=== PATIENT | female | born 1960 ===

== ENCOUNTER 2017-04-11 15:10 | Inpatient (IN) | payer OTHER ==
[2017-04-11] MEDS ORDERED: Iohexol 240 (50 ml) PO ONE (15:58)
[2017-04-11] MEDS ORDERED: Sodium Chloride 0.9% 1,000 ML IV STA (15:58)
[2017-04-11] MEDS ORDERED: Iohexol 240 (50 ml) ONE (16:16)
--- NOTE | 2017-04-11 16:16 | ED PDOC ---
HPI: Abdomen Time Seen by Provider: 04/11/17 15:42 Chief Complaint (Nursing): Abdominal Pain Chief Complaint (Provider): Abdominal pain History Per: Patient History/Exam Limitations: no limitations Onset/Duration Of Symptoms: Days (x1), Worse Since (onset) Current Symptoms Are (Timing): Still Present Location Of Pain/Discomfort: RLQ, Other Quality Of Discomfort: "Pain" Associated Symptoms: Nausea, Other (lightheadedness). denies: Fever, Chills, Chest Pain, Urinary Symptoms Additional Complaint(s): Georgie Ponce is a 56 year old female, with a past medical history of neck effusion, thyroid problems, and gastric bypass, who presents to the emergency department complaining of right lower abdominal pain that radiates to the back onset since yesterday. Patient also reports nausea and lightheadedness secondary to pain. She denies any numbness or tingling, chest pain, shortness of breath, dysuria, fever or chills. No further medical complaints. PMD: Janene Lee Past Medical History Reviewed: Historical Data, Nursing Documentation, Vital Signs Vital Signs: Last Vital Signs Temp 98.3 F 04/11/17 15:13 Pulse 92 H 04/11/17 15:13 Resp 19 04/11/17 15:13 BP 120/70 04/11/17 15:13 Pulse Ox 98 04/11/17 19:14 - Surgical History Other surgeries: gastric bypass. - Family History Family History: States: Unknown Family Hx - Allergies Allergies/Adverse Reactions: Allergies Allergy/AdvReac Type Severity Reaction Status Date / Time No Known Allergies Allergy Verified 04/11/17 15:13 Review of Systems ROS Statement: Except As Marked, All Systems Reviewed And Found Negative Cardiovascular: Positive for: Light Headedness. Negative for: Chest Pain Respiratory: Negative for: Shortness of Breath Gastrointestinal: Positive for: Nausea, Abdominal Pain (right lower that radiates to back) Genitourinary Female: Negative for: Dysuria Musculoskeletal: Positive for: Back Pain Neurological: Negative for: Numbness (tingling) Physical Exam - Reviewed Nursing Documentation Reviewed: Yes Vital Signs Reviewed: Yes - Physical Exam Appears: Positive for: Well, Non-toxic, No Acute Distress Head Exam: Positive for: ATRAUMATIC, NORMAL INSPECTION, NORMOCEPHALIC Skin: Positive for: Normal Color, Warm, Dry Eye Exam: Positive for: Normal appearance, EOMI, PERRL Neck: Positive for: Painless ROM, Supple Cardiovascular/Chest: Positive for: Regular Rate, Rhythm. Negative for: Murmur Respiratory: Positive for: Normal Breath Sounds. Negative for: Respiratory Distress Gastrointestinal/Abdominal: Positive for: Tenderness (RLQ) Back: Positive for: R CVA Tenderness Extremity: Positive for: Normal ROM. Negative for: Deformity, Swelling Neurologic/Psych: Positive for: Alert, Oriented - Laboratory Results Result Diagrams: 04/11/17 16:35 04/11/17 16:35 Interpretation Of Abn Labs: 11.6 wbc - ECG ECG: Positive for: Interpreted By Me, Viewed By Me ECG Rhythm: Positive for: Normal QRS, Normal ST Segment, Sinus Rhythm O2 Sat by Pulse Oximetry: 98 (RA) Pulse Ox Interpretation: Normal - CT Scan/US ct Other Rad Studies (CT/US): Read By Radiologist Other Rad Interpretation: appendicitis - Progress ED Course And Treament: 1906: Stable. Spoke with Dr. Perez. Will admit medsurg. Wants Dr. Manriquez. Spoke with surgery resident who will see pt. 1952: Stable. Spoke [facility] Dr. Manriquez. Will consult. Medical Decision Making Medical Decision Making: Initial Impression: Abdominal pain Initial Plan: --Abdomen Pelvis PO & IV contrast [CT] --EKG --CMP --Lipase --Troponin I --Urine dip --CBC w/ differential --PTT --PT --Omnipaque 240 50 ml PO --Toradol 15 mg IVP --Sodium Chloride 1,000 ml IV 1,000 mls/hr --Zofran Inj 4 mg IV --reevaluation Scribe Attestation: Documented by Prasad Reese, acting as a scribe for Jim Su MD Provider Scribe Attestation: All medical record entries made by the Scribe were at my direction and personally dictated by me. I have reviewed the chart and agree that the record accurately reflects my personal performance of the history, physical exam, medical decision making, and the department course for this patient. I have also personally directed, reviewed, and agree with the discharge instructions and disposition. Disposition - Clinical Impression Clinical Impression: Appendicitis - Patient ED Disposition Is Patient to be Admitted: Yes Counseled Patient/Family Regarding: Studies Performed, Diagnosis - Disposition Disposition Time: 19:11 Condition: FAIR - Pt Status Changed To: Hospital Disposition Of: Inpatient - Admit Certification Admit to Inpatient:: After my assessment, the patient will require hospitalization for at least two midnights. This is because of the severity of symptoms shown, intensity of services needed, and/or the medical risk in this patient being treated as an outpatient. - POA Present On Arrival: None
[2017-04-11 16:50] LABS: BASO # 0.1 K/uL (0.0-0.2); EOS # 0.3 K/uL (0.0-0.7); EOS % 2.3 % (0.0-4.0); HEMOGLOBIN 12.9 g/dL (12.0-16.0); LYMPH # 2.7 K/uL (1.0-4.3); LYMPH % 23.2 % (20.0-40.0); MEAN CELL VOLUME 83.5 fl (81.0-99.0); MEAN CORPUSCULAR HEMOGLOBIN 26.9 pg (27.0-31.0); MEAN CORPUSCULAR HGB CONC 32.2 g/dL (33.0-37.0); MONO # 1.1 K/uL (0.0-0.8); MONO % 9.1 % (0.0-10.0); NEUT # 7.5 K/uL (1.8-7.0); NEUT % 64.4 % (50.0-75.0); RBC 4.79 Mil/uL (3.80-5.20); RED CELL DISTRIBUTION WIDTH 13.3 % (11.5-14.5); WHITE BLOOD COUNT 11.6 K/uL (4.8-10.8)
[2017-04-11 16:56] LABS: ALT/SGPT 22 U/L (9-52); AST/SGOT 25 U/L (14-36); BLOOD UREA NITROGEN 12 mg/dl (7-17); CALCIUM 9.6 mg/dL (8.4-10.2); GFR AFRICAN-AMERICAN > 60; GFR NON-AFRICAN AMERICAN > 60; LIPASE 50 U/L (23-300)
[2017-04-11 17:00] LABS: INR 1.1 (0.9-1.2); PARTIAL THROMBOPLASTIN TIME 32.6 Seconds (25.6-37.1); PROTHROMBIN TIME 12.5 Seconds (9.8-13.1)
[2017-04-11] MEDS ORDERED: Iohexol 300 100 ML IJ ONE (18:04)
[2017-04-11] MEDS ORDERED: Sodium Chloride 0.9% 50 ML IV ONE (18:04)
[2017-04-11] MEDS ORDERED: Piperacillin/Tazobact 3.375 GM in Sodium Chloride 0.9% 100 ML IV STA (18:54)
--- NOTE | 2017-04-11 19:06 | CT ---
PROCEDURE: CT Abdomen and Pelvis with oral and IV contrast. HISTORY: abd pain COMPARISON: None available. TECHNIQUE: Contiguous axial images of the abdomen and pelvis. Oral and IV contrast was administered. Coronal and Sagittal reformats generated and reviewed. Contrast dose: 100 cc Omnipaque 300 Radiation dose: Total exam DLP = 920.62 mGy-cm. This CT exam was performed using one or more of the following dose reduction techniques: Automated exposure control, adjustment of the mA and/or kV according to patient size, and/or use of iterative reconstruction technique. FINDINGS: LOWER THORAX: Numerous bilateral lower lobe pulmonary nodules measuring up to approximately 9 mm. No visible consolidation, pleural effusion, or pneumothorax. Small hiatal hernia. LIVER: 16 mm hepatic hypodensity measures approximately 7 HU consistent with a cyst. 2.6 cm right hepatic lobe related low-density lesion measures approximately 24 HU, indeterminate. Several additional tiny hypodensities which are too small to characterize. GALLBLADDER AND BILE DUCTS: Cholelithiasis. PANCREAS: Unremarkable. SPLEEN: Unremarkable. ADRENALS: 10 mm left adrenal gland nodule, indeterminate. The right adrenal gland appears unremarkable. KIDNEYS AND URETERS: The kidneys enhance symmetrically. No hydronephrosis or obstructing renal calculus. BLADDER: The urinary bladder appears unremarkable. REPRODUCTIVE: Uterus is present. 6 mm uterine calcification. Probable fibroids. APPENDIX: The appendix is not clearly identified. Suspect 15 mm dilated appendix containing small appendicolith and adjacent inflammatory and phlegmonous changes. BOWEL: The stomach is nondistended. Postsurgical gastric changes. The bowel loops appear within normal limits of caliber without evidence of intestinal obstruction. PERITONEUM: No definite free air. LYMPH NODES: Mesenteric/pericecal sub cm lymph nodes, nonspecific. VASCULATURE: No aortic aneurysm. BONES: Mild degenerative changes. OTHER FINDINGS: None. IMPRESSION: 15 mm dilated appendix containing small appendicolith and adjacent inflammatory and phlegmonous changes. Appendiceal wall is somewhat indistinct. No definite free air. Findings consistent with acute appendicitis. Correlate clinically. Numerous bilateral lower lobe pulmonary nodules measuring up to approximately [address] of the chest recommended for further evaluation. As indicated, further evaluation with biopsy, PET- CT, or follow-up CT at 3 months, and 9 months, and 24 months may be considered. 10 mm left adrenal gland nodule, indeterminate. Dedicated cross-sectional imaging for further characterization. 16 mm hepatic hypodensity measures approximately 7 HU consistent with a cyst. 2.6 cm right hepatic lobe related low-density lesion measures approximately 24 HU, indeterminate. Several additional tiny hypodensities which are too small to characterize. Cholelithiasis. Additional findings as above. Findings discussed with Dr. Su on 04/11/17 at 6:51 p.m.
[2017-04-11] MEDS ORDERED: Piperacillin/Tazobact 3.375 gm Inj IVPB ONE (19:15)
--- NOTE | 2017-04-11 19:32 | CP.PCM.CON ---
<Mellisa Pacheco - Last Filed: 04/11/17 19:51> History of Present Illness - History of Present Illness History of Present Illness: General Surgery Dr. Stacy 56 y/o F w/ PMHx of pre-DM2 and obesity presents to the ED c/o abd pain. Pt reports pain started yesterday as vague abd pain w/ radiation down her R leg. Pt states that when she woke up this morning, the pain was worse and more localized to the RLQ w/ worse radiation down the leg. Pt states she made an appointment w/ her PMD, Dr. Kohler, who, on exam, instructed the pt to present to the ED for evaluation. Pt denies having similar pain in the past. Pain worsened by movement w/ no reliving factors. Pt admits to concurrent chills and nausea but denies fever, vomiting, D/C. PMHx: see above, hypothyroid Meds: reviewed in chart NKDA PSHx: gastric bypass; B/L knee repair; C-spine fusion; (L) achilles heel repair SHx: former smoker, quit 10yrs ago; denies EtOH, drug use FHx: noncontributory Review of Systems - Review of Systems All systems: reviewed and no additional remarkable complaints except (see HPI) Past Patient History - Infectious Disease Hx of Infectious Diseases: None Meds Allergies/Adverse Reactions: Allergies Allergy/AdvReac Type Severity Reaction Status Date / Time No Known Allergies Allergy Verified 04/11/17 15:13 - Medications Medications: Current Medications Piperacillin Sod/Tazobactam (Sod 3.375 gm/ Sodium Chloride) 100 mls @ 100 mls/ hr IV STAT STA PRN Reason: Protocol Stop: 04/11/17 19:53 Physical Exam - Constitutional Appears: No Acute Distress - Head Exam Head Exam: NORMAL INSPECTION - Eye Exam Eye Exam: Normal appearance - ENT Exam ENT Exam: Mucous Membranes Moist - Respiratory Exam Respiratory Exam: NORMAL BREATHING PATTERN. absent: Accessory Muscle Use, Respiratory Distress - GI/Abdominal Exam GI & Abdominal Exam: Guarding (voluntary), Soft, Tenderness (RLQ TTP). absent: Distended, Rebound - Expanded GI/Abdominal Exam Expanded Expanded GI & Abdominal Exam: Heel Tap Sign, Obturator Sign, Rovsing's Sign, McBurney's Point Tenderness. absent: Psoas Sign - Extremities Exam Extremities exam: Positive for: normal inspection - Neurological Exam Neurological exam: Alert, Oriented x3 - Psychiatric Exam Psychiatric exam: Normal Affect, Normal Mood - Skin Skin Exam: Dry, Intact, Normal Color, Warm Results - Vital Signs Recent Vital Signs: Last Vital Signs Temp 98.3 F 04/11/17 15:13 Pulse 92 H 04/11/17 15:13 Resp 19 04/11/17 15:13 BP 120/70 04/11/17 15:13 Pulse Ox 98 04/11/17 19:14 - Labs Result Diagrams: 04/11/17 16:35 04/11/17 16:35 Labs: Laboratory Results - last 24 hr 04/11/17 04/11/17 04/11/17 16:35 16:35 16:35 WBC 11.6 H RBC 4.79 Hgb 12.9 Hct 40.0 MCV 83.5 MCH 26.9 L MCHC 32.2 L RDW 13.3 Plt Count 265 MPV 8.0 Neut % (Auto) 64.4 Lymph % (Auto) 23.2 [place] % (Auto) 9.1 Eos % (Auto) 2.3 Baso % (Auto) 1.0 Neut # (Auto) 7.5 H Lymph # (Auto) 2.7 [place] # (Auto) 1.1 H Eos # (Auto) 0.3 Baso # (Auto) 0.1 PT 12.5 INR 1.1 APTT 32.6 Sodium 142 Potassium 3.6 Chloride 105 Carbon Dioxide 26 Anion Gap 15 BUN 12 Creatinine 0.6 L Est GFR ( Amer) > 60 Est GFR (Non-Af Amer) > 60 Random Glucose 102 Calcium 9.6 Total Bilirubin 1.4 H AST 25 ALT 22 Alkaline Phosphatase 115 Troponin I < 0.0120 Total Protein 7.8 Albumin 4.0 Globulin 3.8 Albumin/Globulin Ratio 1.0 Lipase 50 - Imaging and Cardiology CT scan - abdomen Status: Image reviewed by me, Report reviewed by me Assessment & Plan - Assessment and Plan (Free Text) Assessment: 56 y/o F w/ acute appendicitis - NPO, IVF - IV Abx - pain management - anti-emetic - Pt for OR tomorrow, Saturday @1pm Pt discussed w/ Dr. Regis Pacheco DO PGY2 <Kenny Stacy - Last Filed: 04/14/17 18:29> Meds - Medications Medications: Current Medications Hydromorphone HCl (Dilaudid) 1 mg IVP Q3 PRN PRN Reason: Pain, severe (8-10) Last Admin: 04/14/17 17:40 Dose: 1 mg Metronidazole (Flagyl 500mg/100ml Ns) 100 mls @ 100 mls/hr IVPB Q8 URIEL PRN Reason: Protocol Last Admin: 04/14/17 16:19 Dose: 100 mls/hr Piperacillin Sod/Tazobactam (Sod 3.375 gm/ Sodium Chloride) 100 mls @ 100 mls/ hr IVPB Q6 URIEL PRN Reason: Protocol Last Admin: 04/14/17 17:42 Dose: 100 mls/hr Lactated Ringer's (Lactated Ringer's) 1,000 mls @ 100 mls/hr IV .Q10H [facility] Last Admin: 04/14/17 17:40 Dose: 100 mls/hr Ketorolac Tromethamine (Toradol) 30 mg IVP Q6 PRN PRN Reason: Pain, moderate (4-7) Last Admin: 04/14/17 04:16 Dose: 30 mg Ondansetron HCl (Zofran Inj) 4 mg IVP Q4 PRN PRN Reason: Nausea/Vomiting Pantoprazole Sodium (Protonix Ec Tab) 20 mg PO DAILY [facility] Results - Vital Signs Recent Vital Signs: Last Vital Signs Temp 98.1 F 04/14/17 16:54 Pulse 76 04/14/17 16:54 Resp 18 04/14/17 16:54 BP 116/69 04/14/17 16:54 Pulse Ox 98 04/14/17 16:54 - Labs Result Diagrams: 04/14/17 05:50 04/14/17 05:50 Labs: Laboratory Results - last 24 hr 04/14/17 04/14/17 05:50 05:50 WBC 11.0 H RBC 3.61 L Hgb 9.8 L D Hct 30.2 L MCV 83.8 MCH 27.2 MCHC 32.4 L RDW 13.4 Plt Count 222 Sodium 140 Potassium 3.3 L Chloride 105 Carbon Dioxide 27 Anion Gap 11 BUN 16 Creatinine 0.7 Est GFR ( Amer) > 60 Est GFR (Non-Af Amer) > 60 Random Glucose 126 H Calcium 8.6 Total Bilirubin 0.8 AST 22 ALT 28 Alkaline Phosphatase 76 Total Protein 6.0 L Albumin 2.9 L D Globulin 3.1 Albumin/Globulin Ratio 0.9 L Attending/Attestation - Attestation I have personally seen and examined this patient.: Yes I have fully participated in the care of the patient.: Yes I have reviewed all pertinent clinical information: Yes Notes (Text): Pt was seen and examined at bedside Agree with above note and assessment Pt with Abdominal pain for 2 weeks and RLQ tenderness Labs and radilolgy reviewed Ass: Acute Appendicitis with Leucocytosis OR for Lap Appendectomy possible Open Consnet NPO, IVF IV antibiotics Plan d.w pt in detail Risk and benefit explained in detail.
[2017-04-11] MEDS ORDERED: Morphine 4 MG/ML VIAL ONE (19:34)
[2017-04-11 19:50] LABS: VENOUS BLOOD GAS BASE EXCESS -0.7 mmol/L (0.0-2.0); VENOUS BLOOD GAS PCO2 40 mmHg (40-60); VENOUS BLOOD GAS PO2 28 mm/Hg (30-55); VENOUS BLOOD PH 7.39 (7.32-7.43)
[2017-04-11] MEDS ORDERED: Morphine 4 MG/ML VIAL IV ONE (20:00)
[2017-04-11] MEDS ORDERED: Sodium Chloride 0.9% 1,000 ML IV SCH (21:00)
[2017-04-12] MEDS: metroNIDAZOLE 500mg/100ml NS 100 ML IVPB SCH ×2 (00:01→08:37)
[2017-04-12] MEDS: Piperacillin/Tazobact 3.375 GM in Sodium Chloride 0.9% 100 ML IVPB SCH ×3 (04:19→21:54)
--- NOTE | 2017-04-12 07:33 | CP.PCM.HP ---
<Kusum Rutledge - Last Filed: 04/12/17 07:50> History of Present Illness - History of Present Illness History of Present Illness: PMD Dr. Perez 56 YO F was admitted for abdominal pain on the right lower quadrant which was radiating to her back and down her right leg. Pain which was started yesterday was initially was mild to moderate and has progressively worsened. Pain was aggravated with movements. Patient had gone to her PMD who was referred to [facility] for further follow up. -Patient denies any fever, nausea or vomiting however does admit to having some chills. PMH: DM2, Hypothyroidism PSH: Back surgery, gastric bypass SH: Denies illicit drug use or alcohol use. Smoked in the past but no longer smokes FH: none Allergy: none PMD: Dr. Kohler Present on Admission - Present on Admission Any Indicators Present on Admission: No Past Patient History - Infectious Disease Hx of Infectious Diseases: None - Past Medical History & Family History Past Medical History?: No - Past Social History Smoking Status: Never Smoked - MUSCULOSKELETAL/RHEUMATOLOGICAL Hx Falls: No - PSYCHIATRIC Hx Substance Use: No - SURGICAL HISTORY Hx Gastric Bypass Surgery: Yes Hx Orthopedic Surgery: Yes (b/l knee and L foot sx) - ANESTHESIA Hx Anesthesia: Yes Hx Anesthesia Reactions: No Meds Allergies/Adverse Reactions: Allergies Allergy/AdvReac Type Severity Reaction Status Date / Time No Known Allergies Allergy Verified 04/11/17 15:13 Physical Exam - Constitutional Appears: No Acute Distress - Head Exam Head Exam: NORMAL INSPECTION - Eye Exam Eye Exam: Normal appearance - Respiratory Exam Respiratory Exam: Clear to Auscultation Bilateral, NORMAL BREATHING PATTERN. absent: Rales, Rhonchi, Wheezes, Respiratory Distress - Cardiovascular Exam Cardiovascular Exam: REGULAR RHYTHM, +S1, +S2 - GI/Abdominal Exam GI & Abdominal Exam: Normal Bowel Sounds, Soft, Tenderness (right lower quadrant ) - Extremities Exam Extremities exam: Positive for: normal inspection - Neurological Exam Neurological exam: Alert, CN II-XII Intact, Oriented x3 - Skin Skin Exam: Normal Color, Warm Results - Vital Signs Recent Vital Signs: Last Vital Signs Temp 99.2 F 04/11/17 23:43 Pulse 82 04/11/17 23:43 Resp 18 04/11/17 23:43 BP 139/81 04/11/17 23:43 Pulse Ox 100 02/08/18 23:43 - Labs Result Diagrams: 04/11/17 16:35 04/11/17 16:35 Labs: Laboratory Results - last 24 hr 04/11/17 04/11/17 04/11/17 16:35 16:35 16:35 WBC 11.6 H RBC 4.79 Hgb 12.9 Hct 40.0 MCV 83.5 MCH 26.9 L MCHC 32.2 L RDW 13.3 Plt Count 265 MPV 8.0 Neut % (Auto) 64.4 Lymph % (Auto) 23.2 [place] % (Auto) 9.1 Eos % (Auto) 2.3 Baso % (Auto) 1.0 Neut # (Auto) 7.5 H Lymph # (Auto) 2.7 [place] # (Auto) 1.1 H Eos # (Auto) 0.3 Baso # (Auto) 0.1 PT 12.5 INR 1.1 APTT 32.6 pO2 VBG pH VBG pCO2 VBG HCO3 VBG Total CO2 VBG O2 Sat (Calc) VBG Base Excess VBG Potassium Glucose Lactate FiO2 Sodium 142 Potassium 3.6 Chloride 105 Carbon Dioxide 26 Anion Gap 15 BUN 12 Creatinine 0.6 L Est GFR ( Amer) > 60 Est GFR (Non-Af Amer) > 60 Random Glucose 102 Calcium 9.6 Total Bilirubin 1.4 H AST 25 ALT 22 Alkaline Phosphatase 115 Troponin I < 0.0120 Total Protein 7.8 Albumin 4.0 Globulin 3.8 Albumin/Globulin Ratio 1.0 Lipase 50 Venous Blood Potassium 04/11/17 19:40 WBC RBC Hgb Hct MCV MCH MCHC RDW Plt Count MPV Neut % (Auto) Lymph % (Auto) [place] % (Auto) Eos % (Auto) Baso % (Auto) Neut # (Auto) Lymph # (Auto) [place] # (Auto) Eos # (Auto) Baso # (Auto) PT INR APTT pO2 28 L VBG pH 7.39 VBG pCO2 40 VBG HCO3 23.1 VBG Total CO2 25.4 VBG O2 Sat (Calc) 59.3 VBG Base Excess -0.7 L VBG Potassium 3.8 Glucose 100 Lactate 1.0 FiO2 21.0 Sodium 139.0 Potassium Chloride 107.0 Carbon Dioxide Anion Gap BUN Creatinine Est GFR ( Amer) Est GFR (Non-Af Amer) Random Glucose Calcium Total Bilirubin AST ALT Alkaline Phosphatase Troponin I Total Protein Albumin Globulin Albumin/Globulin Ratio Lipase Venous Blood Potassium 3.8 Assessment & Plan - Assessment and Plan (Free Text) Assessment: 1) Abdominal pain consistent with w/ appendicitis - NPO - Pre op labs reviewed :Patient is low risk for surgery - Surgery on consult: Scheduled for 1 pm - 15 mm appendix containg small appendicolith and adjacent inflammatory and phlegmonous changes 2) Incidental pulmonary nodules noted on abdomen Ct - Numerous b/l lower lobe pulmonary nodules measuring up to 9 mm - Chest CT indicated after patients surgery <Fredy Perez - Last Filed: 04/19/17 16:18> Results - Vital Signs Recent Vital Signs: Last Vital Signs Temp 97.9 F 04/18/17 08:12 Pulse 83 04/18/17 08:12 Resp 18 04/18/17 08:12 BP 138/83 04/18/17 08:12 Pulse Ox 99 04/18/17 08:12 - Labs Result Diagrams: 04/15/17 06:15 04/15/17 06:15 Assessment & Plan - Assessment and Plan (Free Text) Assessment: Patient was personally seen and examined by me in rounds with residents. Available labs and diagnostic data reviewed. Case, Patient's condition and management plan discussed with residents in rounds. Agree with resident's documentation. Plan: As ordered. Fredy Perez MD
--- NOTE | 2017-04-12 11:24 | CARD ---
APPROVED REPORT EKG Measurement Heart [id number] <Conclusion> Normal sinus rhythm Normal ECG
--- NOTE | 2017-04-12 12:19 | RAD ---
HISTORY: Admission, pre-op COMPARISON: No prior. TECHNIQUE: Chest PA and lateral FINDINGS: LUNGS: Adjacent right upper lobe 3.1 x 2.8 cm and 3.3 x 3.3 cm masses. PLEURA: No significant pleural effusion identified. No pneumothorax apparent. CARDIOVASCULAR: Normal. OSSEOUS STRUCTURES: Anterior cervical fixation plate. Degenerative changes. VISUALIZED UPPER ABDOMEN: Partially imaged retained enteric contrast from recent CT scan. OTHER FINDINGS: None. IMPRESSION: Adjacent right upper lobe masses. CT scan of the chest is recommended for further evaluation.
[2017-04-12] MEDS ORDERED: Bupivacaine 0.5% Inj(30mL) ONE (12:41)
[2017-04-12] MEDS ORDERED: Lidocaine 1% Inj (20ml) ONE (12:41)
[2017-04-12] MEDS ORDERED: Rocuronium 10 mg/ml (5 ml) ONE (13:59)
[2017-04-12] MEDS ORDERED: Propofol 10 mg/ml Inj (20 ML) ONE (13:59)
[2017-04-12] MEDS ORDERED: Succinylcholine 200 mg/10 ml Inj IV ONE (13:59)
[2017-04-12] MEDS ORDERED: Lactated Ringer's 1,000 ML IV ONE ×2 (14:35→16:00)
[2017-04-12] MEDS ORDERED: Midazolam 2 MG/2 ML VIAL ONE (14:37)
[2017-04-12] MEDS ORDERED: Piperacillin/Tazobact 3.375 gm Inj IVPB ONE (14:50)
[2017-04-12] MEDS ORDERED: Dexamethasone 4 mg/1 ml ONE (14:55)
[2017-04-12] MEDS ORDERED: metroNIDAZOLE 500mg/100ml NS IVPB ONE (17:50)
[2017-04-13] MEDS: metroNIDAZOLE 500mg/100ml NS 100 ML IVPB SCH ×3 (00:46→18:34)
[2017-04-13] MEDS: Piperacillin/Tazobact 3.375 GM in Sodium Chloride 0.9% 100 ML IVPB SCH ×4 (04:16→21:39)
[2017-04-13] MEDS: Lactated Ringer's 1,000 ML IV SCH (04:16)
--- NOTE | 2017-04-13 10:32 | PN ---
DATE: 04/13/2017 SUBJECTIVE: The patient is seen and examined. Interim events noted. Consults noted and appreciated. Surgical intervention, surgery noted and appreciated. Case was discussed with Surgery yesterday. The patient feels better. Pain seems to be under control. No chest pain, no shortness of breath. PHYSICAL EXAMINATION: GENERAL: The patient is in no acute distress. VITAL SIGNS: Stable. HEART: S1 and S2, normal and regular. LUNGS: Good bilateral air exchange. ABDOMEN: Soft and nontender. good position and functioning. No sign of acute complication. EXTREMITIES: No edema, no calf swelling, no tenderness. No acute ischemia. CENTRAL NERVOUS SYSTEM: Essentially unchanged. DIAGNOSTIC DATA: Available diagnostic data reviewed. PLAN: The patient is clinically stable. Tolerated surgery well. No overt postop complication. Plan as ordered. Fredy Perez MD
[2017-04-13] MEDS ORDERED: Sodium Chloride 0.9% 50 ML IV ONE (12:12)
[2017-04-13] MEDS ORDERED: Iohexol 300 100 ML IJ ONE (12:12)
--- NOTE | 2017-04-13 16:00 | PCM.SURG1 ---
Surgeon's Initial Post Op Note - Surgeon's Notes Surgeon: Hetaher Stacy Decorating Machine Tender: DAQUAN Tapia Type of Anesthesia: General Endo Pre-Operative Diagnosis: Acute Appendicitis with Leucocystosis Operative Findings: Acute Phlagmoneous appendicitis with abscess. Extensive Post infectious adhesions. Appendicolith at base of appendix. Pelvic collection Post-Operative Diagnosis: Acute Phlagmoneous appendicitis with abscess. Extensive Post infectious adhesions. Appendicolith at base of appendix. Pelvic collection Operation Performed: Lap Extensive Lysis of Adhesions. Lap Apendectomy. Lap Cecectomy. Lap Drainage of Pelvic collection Specimen/Specimens Removed: Appendix and part of cecum Estimated Blood Loss: EBL {In ML}: 100 Blood Products Given: N/A Drains Used: Kevon Post-Op Condition: Good Date of Surgery/Procedure: 04/12/17 Time of Surgery/Procedure: 17:30
--- NOTE | 2017-04-13 17:34 | CT ---
PROCEDURE: CT scan chest dated 04/13/2017 HISTORY: Lung masses. COMPARISON: Comparison made with prior abdomen and pelvis dated CT scan dated 04/11/2017. TECHNIQUE: Contiguous axial images were obtained through the chest with intravenous contrast enhancement. Sagittal and coronal reconstructions were performed. IV contrast: 95 cc Omnipaque 300 Radiation dose (DLP): 436 point 29 mGy-cm. This CT exam was performed using one or more of the following dose reduction techniques: Automated exposure control, adjustment of the mA and/or kV according to patient size, and/or use of iterative reconstruction technique. FINDINGS: LUNGS: The current study reveals left 2 large parenchymal masses in the right upper lobe. The more anteriorly located lesion measures approximately 3.4 AP x 3.6 trans x 2.6 cc. The posteriorly located lesion measures approximately 3.3 AP x 2.8 cm trans x 3.0 cm cc. Multiple too numerous to count smaller lesions are seen scattered throughout the remaining lung irwin. Findings may represent a large primary malignancy in the upper lobe with multiple metastatic deposits. Clinical correlation recommended. . There is a small area of pleural thickening in the posterior pleural surface right lower lobe. Multiple tiny blebs seen in both lung apices. MEDIASTINUM: Heart size normal. No significant pericardial effusion. No evidence of thoracic aortic aneurysm. The ascending thoracic aorta measures approximately 2.56 cm and descending thoracic aorta measures approximately 2.1 cm. Pulmonary trunk measures approximately 2.8 cm. There are multiple small to medium-sized mediastinal lymph nodes the largest in the right parasagittal paratracheal region just above the level of the nayeli measures approximately 18 mm. Central airways are midline and patent. No obvious large central endoluminal lesions. PLEURA: No pleural fluid. No pneumothorax. BONES: Mild multilevel degenerative spondylosis of the thoracic spine. There are no acute compression fractures no retropulsed fragments. No definitive suspicious lytic or blastic lesions however consider followup bone scan hip bone metastasis suspected clinically. UPPER ABDOMEN: Please refer to CT scan of the abdomen pelvis 04/11/2017 and corresponding report for details regarding the at abdomen and pelvis. OTHER FINDINGS: None. IMPRESSION: There are 2 large the round/elliptical shaped masses in the right upper lobe with multiple (too numerous to count) small nodular densities scattered throughout the upper and lower lobes. Findings consistent with what probably represents primary malignancy in the upper lobe and multiple metastatic lesions throughout the remaining lung irwin. Clinical correlation recommended. Consider additional imaging such as bone scan or PET scan if there is any known primary cancer in this patient.
--- NOTE | 2017-04-13 18:45 | CP.PCM.PN ---
<Nick Dang - Last Filed: 04/13/17 18:42> Subjective - Date & Time of Evaluation Date of Evaluation: 04/13/17 Time of Evaluation: 16:00 - Subjective Subjective: General Surgery Pt S&E, NAEO. +BM, ambulating. Wants liquids.Pain controlled with meds. Objective - Vital Signs/Intake and Output Vital Signs (last 24 hours): Temp Pulse Resp BP Pulse Ox 97.8 F 68 18 130/81 98 04/13/17 16:00 04/13/17 16:00 04/13/17 16:00 04/13/17 16:00 04/13/17 16:00 Intake and Output: 04/13/17 04/13/17 06:59 18:59 Intake Total 1200 Output Total 10 Balance 1190 - Medications Medications: Current Medications Hydromorphone HCl (Dilaudid) 1 mg IVP Q3 PRN PRN Reason: Pain, severe (8-10) Last Admin: 04/13/17 16:57 Dose: 1 mg Metronidazole (Flagyl 500mg/100ml Ns) 100 mls @ 100 mls/hr IVPB Q8 URIEL PRN Reason: Protocol Last Admin: 04/13/17 18:34 Dose: 100 mls/hr Piperacillin Sod/Tazobactam (Sod 3.375 gm/ Sodium Chloride) 100 mls @ 100 mls/ hr IVPB Q6 URIEL PRN Reason: Protocol Last Admin: 04/13/17 16:58 Dose: 100 mls/hr Lactated Ringer's (Lactated Ringer's) 1,000 mls @ 100 mls/hr IV .Q10H URIEL Last Admin: 04/13/17 04:16 Dose: 100 mls/hr Ketorolac Tromethamine (Toradol) 30 mg IVP Q6 PRN PRN Reason: Pain, moderate (4-7) Last Admin: 04/13/17 14:02 Dose: 30 mg Ondansetron HCl (Zofran Inj) 4 mg IVP Q4 PRN PRN Reason: Nausea/Vomiting - Labs Labs: 04/11/17 16:35 04/11/17 16:35 PT 12.5 Seconds (9.8-13.1) 04/11/17 16:35 INR 1.1 (0.9-1.2) 04/11/17 16:35 APTT 32.6 Seconds (25.6-37.1) 04/11/17 16:35 - Constitutional Appears: Non-toxic, No Acute Distress - Head Exam Head Exam: ATRAUMATIC, NORMOCEPHALIC - Eye Exam Eye Exam: EOMI. absent: Scleral icterus - Respiratory Exam Respiratory Exam: NORMAL BREATHING PATTERN. absent: Respiratory Distress - GI/Abdominal Exam GI & Abdominal Exam: Guarding (mild at incision sites), Soft, Tenderness (at incision sites). absent: Distended, Firm, Rigid, Rebound Additional comments: dressings dry and intact. Drain in place with serosanguinous fluid - Neurological Exam Neurological Exam: Alert, Awake, Oriented x3 - Skin Skin Exam: Dry, Warm Assessment and Plan - Assessment and Plan (Free Text) Assessment: 56F S/P Cecectomy for perforated appendicitis Plan: Advanced to CLD Monitor output Pain control PRN Get pt incentive spirometer D/W Dr. Regis Dang PGY4 <Kenny Stacy B - Last Filed: 04/14/17 18:34> Objective - Vital Signs/Intake and Output Vital Signs (last 24 hours): Temp Pulse Resp BP Pulse Ox 98.1 F 76 18 116/69 98 04/14/17 17:00 04/14/17 16:54 04/14/17 16:54 04/14/17 16:54 04/14/17 16:54 Intake and Output: 04/14/17 04/14/17 06:59 18:59 Intake Total 1100 Output Total 20 Balance 1080 - Medications Medications: Current Medications Hydromorphone HCl (Dilaudid) 1 mg IVP Q3 PRN PRN Reason: Pain, severe (8-10) Last Admin: 04/14/17 17:40 Dose: 1 mg Metronidazole (Flagyl 500mg/100ml Ns) 100 mls @ 100 mls/hr IVPB Q8 URIEL PRN Reason: Protocol Last Admin: 04/14/17 16:19 Dose: 100 mls/hr Piperacillin Sod/Tazobactam (Sod 3.375 gm/ Sodium Chloride) 100 mls @ 100 mls/ hr IVPB Q6 URIEL PRN Reason: Protocol Last Admin: 04/14/17 17:42 Dose: 100 mls/hr Lactated Ringer's (Lactated Ringer's) 1,000 mls @ 100 mls/hr IV .Q10H URIEL Last Admin: 04/14/17 17:40 Dose: 100 mls/hr Ketorolac Tromethamine (Toradol) 30 mg IVP Q6 PRN PRN Reason: Pain, moderate (4-7) Last Admin: 04/14/17 04:16 Dose: 30 mg Ondansetron HCl (Zofran Inj) 4 mg IVP Q4 PRN PRN Reason: Nausea/Vomiting Pantoprazole Sodium (Protonix Ec Tab) 20 mg PO DAILY URIEL - Labs Labs: 04/14/17 05:50 04/14/17 05:50 PT 12.5 Seconds (9.8-13.1) 04/11/17 16:35 INR 1.1 (0.9-1.2) 04/11/17 16:35 APTT 32.6 Seconds (25.6-37.1) 04/11/17 16:35 Attending/Attestation - Attestation I have personally seen and examined this patient.: Yes I have fully participated in the care of the patient.: Yes I have reviewed all pertinent clinical information, including history, physical exam and plan: Yes Notes (Text): Local wound care IV antibiotics Clear liquid diet Plan d.w nurse in detail
[2017-04-14] MEDS: metroNIDAZOLE 500mg/100ml NS 100 ML IVPB SCH ×3 (00:18→16:19)
[2017-04-14] MEDS: Lactated Ringer's 1,000 ML IV SCH ×2 (00:20→17:40)
[2017-04-14] MEDS: Piperacillin/Tazobact 3.375 GM in Sodium Chloride 0.9% 100 ML IVPB SCH ×4 (04:15→21:48)
--- NOTE | 2017-04-14 05:59 | CP.PCM.PN ---
<Ladarius Reid - Last Filed: 04/14/17 08:24> Subjective - Date & Time of Evaluation Date of Evaluation: 04/14/17 Time of Evaluation: 05:20 - Subjective Subjective: General Surgery Note for Dr. Stacy Patient seen and examined at [facility]. Overnight, patient had BM. She states pain is controlled with meds. She is tolerating clear liquid diet. Patient has been ambulating. Patient has no other complaints at this time. Objective - Vital Signs/Intake and Output Vital Signs (last 24 hours): Temp Pulse Resp BP Pulse Ox 97.9 F 69 20 106/58 L 94 L 04/14/17 00:20 04/14/17 00:20 04/14/17 00:20 04/14/17 00:20 04/14/17 00:20 Intake and Output: 04/13/17 04/14/17 18:59 06:59 Intake Total 1200 Output Total 30 Balance 1170 - Medications Medications: Current Medications Hydromorphone HCl (Dilaudid) 1 mg IVP Q3 PRN PRN Reason: Pain, severe (8-10) Last Admin: 04/13/17 22:38 Dose: 1 mg Metronidazole (Flagyl 500mg/100ml Ns) 100 mls @ 100 mls/hr IVPB Q8 URIEL PRN Reason: Protocol Last Admin: 04/14/17 00:18 Dose: 100 mls/hr Piperacillin Sod/Tazobactam (Sod 3.375 gm/ Sodium Chloride) 100 mls @ 100 mls/ hr IVPB Q6 URIEL PRN Reason: Protocol Last Admin: 04/14/17 04:15 Dose: 100 mls/hr Lactated Ringer's (Lactated Ringer's) 1,000 mls @ 100 mls/hr IV .Q10H URIEL Last Admin: 04/14/17 00:20 Dose: 100 mls/hr Ketorolac Tromethamine (Toradol) 30 mg IVP Q6 PRN PRN Reason: Pain, moderate (4-7) Last Admin: 04/14/17 04:16 Dose: 30 mg Ondansetron HCl (Zofran Inj) 4 mg IVP Q4 PRN PRN Reason: Nausea/Vomiting - Labs Labs: 04/11/17 16:35 04/11/17 16:35 PT 12.5 Seconds (9.8-13.1) 04/11/17 16:35 INR 1.1 (0.9-1.2) 04/11/17 16:35 APTT 32.6 Seconds (25.6-37.1) 04/11/17 16:35 - Constitutional Appears: No Acute Distress - Head Exam Head Exam: ATRAUMATIC, NORMOCEPHALIC - Eye Exam Eye Exam: EOMI, Normal appearance Pupil Exam: PERRL - ENT Exam ENT Exam: Mucous Membranes Moist - Respiratory Exam Respiratory Exam: NORMAL BREATHING PATTERN - Cardiovascular Exam Cardiovascular Exam: REGULAR RHYTHM - GI/Abdominal Exam GI & Abdominal Exam: Soft, Normal Bowel Sounds. absent: Distended, Firm, Guarding, Rigid, Tenderness Additional comments: dressings dry and intact. Drain in place with serosanguinous fluid - Neurological Exam Neurological Exam: Alert, Awake, Oriented x3 - Psychiatric Exam Psychiatric exam: Normal Affect, Normal Mood - Skin Skin Exam: Dry, Intact, Normal Color, Warm Assessment and Plan - Assessment and Plan (Free Text) Plan: 56F S/P appendectomy and Cecectomy for perforated appendicitis POD#2 CLD, ADAT Monitor drain output Analgesics PRN Continue IV antibiotics Incentive spirometer will discuss with Dr. Regis Reid PGY1 <Kenny Stacy B - Last Filed: 04/14/17 18:36> Objective - Vital Signs/Intake and Output Vital Signs (last 24 hours): Temp Pulse Resp BP Pulse Ox 98.1 F 76 18 116/69 98 04/14/17 17:00 04/14/17 16:54 04/14/17 16:54 04/14/17 16:54 04/14/17 16:54 Intake and Output: 04/14/17 04/14/17 06:59 18:59 Intake Total 1100 Output Total 20 Balance 1080 - Medications Medications: Current Medications Hydromorphone HCl (Dilaudid) 1 mg IVP Q3 PRN PRN Reason: Pain, severe (8-10) Last Admin: 04/14/17 17:40 Dose: 1 mg Metronidazole (Flagyl 500mg/100ml Ns) 100 mls @ 100 mls/hr IVPB Q8 URIEL PRN Reason: Protocol Last Admin: 04/14/17 16:19 Dose: 100 mls/hr Piperacillin Sod/Tazobactam (Sod 3.375 gm/ Sodium Chloride) 100 mls @ 100 mls/ hr IVPB Q6 URIEL PRN Reason: Protocol Last Admin: 04/14/17 17:42 Dose: 100 mls/hr Lactated Ringer's (Lactated Ringer's) 1,000 mls @ 100 mls/hr IV .Q10H [facility] Last Admin: 04/14/17 17:40 Dose: 100 mls/hr Ketorolac Tromethamine (Toradol) 30 mg IVP Q6 PRN PRN Reason: Pain, moderate (4-7) Last Admin: 04/14/17 04:16 Dose: 30 mg Ondansetron HCl (Zofran Inj) 4 mg IVP Q4 PRN PRN Reason: Nausea/Vomiting Pantoprazole Sodium (Protonix Ec Tab) 20 mg PO DAILY URIEL - Labs Labs: 04/14/17 05:50 04/14/17 05:50 PT 12.5 Seconds (9.8-13.1) 04/11/17 16:35 INR 1.1 (0.9-1.2) 04/11/17 16:35 APTT 32.6 Seconds (25.6-37.1) 04/11/17 16:35 Attending/Attestation - Attestation I have fully participated in the care of the patient.: Yes I have reviewed all pertinent clinical information, including history, physical exam and plan: Yes Notes (Text): Reg diet IV antibiotics OOB to walk C/w current mx Plan d.w pt in detail
[2017-04-14 08:17] LABS: HEMOGLOBIN 9.8 g/dL (12.0-16.0); MEAN CELL VOLUME 83.8 fl (81.0-99.0); MEAN CORPUSCULAR HEMOGLOBIN 27.2 pg (27.0-31.0); MEAN CORPUSCULAR HGB CONC 32.4 g/dL (33.0-37.0); RBC 3.61 Mil/uL (3.80-5.20); RED CELL DISTRIBUTION WIDTH 13.4 % (11.5-14.5)
--- NOTE | 2017-04-14 08:24 | PN ---
DATE: 04/14/2017 SUBJECTIVE: The patient is seen and examined. Interim events noted. Consults noted and appreciated. Surgical followup and intervention noted and appreciated. The patient remains in regular medical floor. Tolerated liquid diet very well. Her abdominal pain is present, but adequately controlled. No chest pain or shortness of breath. PHYSICAL EXAMINATION: GENERAL: The patient is in no acute distress. VITAL SIGNS: Stable. HEART: S1 and S2, normal and regular. LUNGS: Good bilateral air exchange. ABDOMEN: Soft and nontender. No sign of acute complication. SHERRY drain is in good position and functioning and draining tenderness. No bloody discharge, no sign of acute abdomen. No guarding, no rigidity, no rebound. Bowel sounds are plus and normal. EXTREMITIES: No edema, no calf swelling. No tenderness. No acute ischemia. TIRE CLASSIFIER: Essentially unchanged. DIAGNOSTIC DATA: Available diagnostic data reviewed. PLAN: Overall, the patient's general medical condition is slowly improving. Plan as ordered. Fredy Perez MD
[2017-04-14 08:30] LABS: ALB/GLOB RATIO 0.9 (1.0-2.1); ALBUMIN 2.9 g/dL (3.5-5.0); ALT/SGPT 28 U/L (9-52); AST/SGOT 22 U/L (14-36); BLOOD UREA NITROGEN 16 mg/dl (7-17); CALCIUM 8.6 mg/dL (8.4-10.2); GFR AFRICAN-AMERICAN > 60; GFR NON-AFRICAN AMERICAN > 60
[2017-04-14] MEDS ORDERED: Potassium Chloride 20 mEq ER Tab PO ONE (14:30)
--- NOTE | 2017-04-14 22:53 | OP ---
PROCEDURE DATE: 04/12/2017 PREOPERATIVE DIAGNOSES: 1. Acute appendicitis with leukocytosis. 2. Abdominal pain. POSTOPERATIVE DIAGNOSES: 1. Acute phlegmonous perforated appendicitis at the base of the appendix. 2. Extensive postinfectious adhesions. 3. Pelvic abscess and appendicular abscess. PROCEDURES: 1. Laparoscopic extensive lysis of adhesions. 2. Laparoscopic appendectomy. 3. Laparoscopic drainage of pelvic collection and appendicular abscess. 4. Laparoscopic cecectomy partial. SURGEON: Kenny Stacy MD PLANE RUNNER: BRANDEN Tapia TYPE OF ANESTHESIA: General endotracheal tube anesthesia. ESTIMATED BLOOD LOSS: Around 100 mL. DRAINS: A 19-[place] Kevon drain was placed. COMPLICATIONS: None. INTRAOPERATIVE FINDINGS: The patient had appendicular abscess and perforation at the base of appendix where extensive postinflammatory phlegmonous changes surrounding the pelvis and the mass was attached on the iliac vessels. DESCRIPTION OF PROCEDURE: On intraoperative steps, this 56-year-old female who was admitted with complaint of right lower quadrant pain since last 2 week and since last 2 days, the pain got worse and the patient had leukocytosis as well as CT scan findings of acute appendicitis and the patient was consented for laparoscopic appendectomy, possible open, brought to the OR, and placed supine on operating room table. After induction of the anesthesia, the abdomen was prepped and draped in the usual sterile fashion. A supraumbilical transverse incision was made after incising skin and subcutaneous tissue and fascia. Rommel port was placed. Pneumo was created. The 5-mm port was placed in suprapubic region and the 12-mm port was placed in the left lower quadrant. The grasper and dissector were introduced. The patient was placed in right side of head low position and the right lower quadrant was explored. The ileum and cecum were attached to the mass and the omentum that was dissected and the patient found to have appendix that was firmly attached to the iliac vessels and retroperitoneum with blunt and sharp dissection the appendix was dissected. The appendix appeared to be very short as well as there was abscess and perforation at the base of the appendix with appendicolith and the dissection was carried down and the major appendix was resected. The pelvic abscess as well as the appendicular abscess were drained and suction and irrigation of that area was done and after that dissection was carried down up to the ileocecal junction, and due to the perforation at the base of the appendix and cecum junction, the cecectomy partial was done and the specimen was sent off the table for the pathology. There was proper hemostasis in each and every part of the procedure. After proper suction and irrigation of the pelvic periappendicular as well as the perihepatic area, and after proper hemostasis, a 19-[place] Kevon drain was placed and drain was secured to skin. All the instruments were taken out. All the ports were taken out under vision. Pneumo was deflated. Umbilical port site was closed in two layers, fascia with 0 Vicryl interrupted sutures, skin with 4-0 Monocryl, and dry sterile dressing was applied. The patient tolerated the procedure well. Count of instruments and gauze was correct. There was no apparent complication. Kenny Stacy MD MTDPauline
[2017-04-15] MEDS: metroNIDAZOLE 500mg/100ml NS 100 ML IVPB SCH ×3 (00:50→16:47)
[2017-04-15] MEDS: Piperacillin/Tazobact 3.375 GM in Sodium Chloride 0.9% 100 ML IVPB SCH ×4 (03:43→21:33)
[2017-04-15] MEDS: Lactated Ringer's 1,000 ML IV SCH (06:23)
[2017-04-15 06:40] LABS: MEAN CELL VOLUME 83.3 fl (81.0-99.0); MEAN CORPUSCULAR HEMOGLOBIN 27.8 pg (27.0-31.0); MEAN CORPUSCULAR HGB CONC 33.4 g/dL (33.0-37.0); RBC 3.94 Mil/uL (3.80-5.20); RED CELL DISTRIBUTION WIDTH 13.2 % (11.5-14.5); WHITE BLOOD COUNT 7.4 K/uL (4.8-10.8)
[2017-04-15 07:05] LABS: ALBUMIN 3.2 g/dL (3.5-5.0); ALT/SGPT 23 U/L (9-52); AST/SGOT 20 U/L (14-36); BLOOD UREA NITROGEN 9 mg/dl (7-17); CALCIUM 8.5 mg/dL (8.4-10.2); GFR AFRICAN-AMERICAN > 60; GFR NON-AFRICAN AMERICAN > 60
--- NOTE | 2017-04-15 08:50 | PN ---
DATE: 04/15/2017 SUBJECTIVE: The patient is seen and examined. Interim events noted. Consults noted and appreciated. Surgical followup noted and appreciated. The patient tolerating liquid well, but still has significant abdominal pain. PHYSICAL EXAMINATION: GENERAL: The patient is in no acute distress. VITAL SIGNS: Stable. HEART: S1 and S2, normal and regular. LUNGS: Good bilateral air exchange. ABDOMEN: Soft and nontender. SHERRY drain is in good position. Has some discharge, almost three quarter of drain bulb is full with serosanguineous, slightly bloody liquid. No sign of acute abdomen. No sign of acute complication. No guarding. No rigidity. No rebound. Bowel sounds are present and normal. EXTREMITIES: No edema, no calf swelling, no tenderness. No acute ischemia. CENTRAL NERVOUS SYSTEM: Essentially unchanged. DIAGNOSTIC DATA: Available diagnostic data reviewed. ASSESSMENT AND PLAN: Overall, the patient is slowly improving. Plan as ordered. Fredy Perez MD
[2017-04-15] MEDS ORDERED: Pantoprazole 20 mg EC Tab PO SCH (09:00)
[2017-04-15] MEDS: Sodium Chloride 0.9% 1,000 ML IV SCH ×2 (09:24→19:00)
--- NOTE | 2017-04-15 10:12 | CP.PCM.PN ---
<JuniorMellisa - Last Filed: 04/15/17 10:08> Subjective - Date & Time of Evaluation Date of Evaluation: 04/15/17 Time of Evaluation: 07:15 - Subjective Subjective: General Surgery Dr. Stacy Pt S&E @bedside. NAEO. c/o RLQ pain, nausea, headache. denies F/C, vomiting, D/ C. tolerating diet. (+) BM. Objective - Vital Signs/Intake and Output Vital Signs (last 24 hours): Temp Pulse Resp BP Pulse Ox 97.8 F 89 20 138/76 96 04/15/17 08:32 04/15/17 08:32 04/15/17 08:32 04/15/17 08:32 04/15/17 08:32 Intake and Output: 04/15/17 04/15/17 06:59 18:59 Intake Total 1200 Output Total 90 Balance 1110 - Medications Medications: Current Medications Metronidazole (Flagyl 500mg/100ml Ns) 100 mls @ 100 mls/hr IVPB Q8 URIEL PRN Reason: Protocol Last Admin: 04/15/17 08:33 Dose: 100 mls/hr Piperacillin Sod/Tazobactam (Sod 3.375 gm/ Sodium Chloride) 100 mls @ 100 mls/ hr IVPB Q6 URIEL PRN Reason: Protocol Last Admin: 04/15/17 09:23 Dose: 100 mls/hr Sodium Chloride (Sodium Chloride 0.9%) 1,000 mls @ 100 mls/hr IV .Q10H URIEL Stop: 04/16/17 08:49 Last Admin: 04/15/17 09:24 Dose: 100 mls/hr Ketorolac Tromethamine (Toradol) 30 mg IVP Q6 PRN PRN Reason: Pain, moderate (4-7) Last Admin: 04/15/17 06:28 Dose: 30 mg Ondansetron HCl (Zofran Inj) 4 mg IVP Q4 PRN PRN Reason: Nausea/Vomiting Last Admin: 04/15/17 08:32 Dose: 4 mg Pantoprazole Sodium (Protonix Ec Tab) 20 mg PO DAILY URIEL - Labs Labs: 04/15/17 06:15 04/15/17 06:15 PT 12.5 Seconds (9.8-13.1) 04/11/17 16:35 INR 1.1 (0.9-1.2) 04/11/17 16:35 APTT 32.6 Seconds (25.6-37.1) 04/11/17 16:35 - Constitutional Appears: Non-toxic, No Acute Distress - Head Exam Head Exam: NORMAL INSPECTION - Eye Exam Eye Exam: Normal appearance - ENT Exam ENT Exam: Mucous Membranes Moist - Respiratory Exam Respiratory Exam: NORMAL BREATHING PATTERN. absent: Accessory Muscle Use, Respiratory Distress - GI/Abdominal Exam GI & Abdominal Exam: Guarding, Soft, Tenderness (appropriate TTP RLQ). absent: Distended, Rebound Additional comments: incisions C/D/I drain in place - Extremities Exam Extremities Exam: Normal Inspection - Neurological Exam Neurological Exam: Alert, Awake, Oriented x3 - Psychiatric Exam Psychiatric exam: Normal Affect, Normal Mood - Skin Skin Exam: Dry, Intact, Normal Color, Warm Assessment and Plan - Assessment and Plan (Free Text) Assessment: 56 y/o F POD#3 s/p Lap appy - cont pain management - cont IV Abx - f/u pathology report - f/u Pulm recs - ADAT - monitor drain outputs - encourage OOB to chair/Amb/IS use Pt discussed w/ Dr. Regis Pacheco DO PGY2 <Kenny Stacy - Last Filed: 04/18/17 20:57> Objective - Vital Signs/Intake and Output Vital Signs (last 24 hours): Temp Pulse Resp BP Pulse Ox 97.9 F 83 18 138/83 99 04/18/17 08:12 04/18/17 08:12 04/18/17 08:12 04/18/17 08:12 04/18/17 08:12 - Labs Labs: 04/15/17 06:15 04/15/17 06:15 PT 12.5 Seconds (9.8-13.1) 04/11/17 16:35 INR 1.1 (0.9-1.2) 04/11/17 16:35 APTT 32.6 Seconds (25.6-37.1) 04/11/17 16:35 Attending/Attestation - Attestation I have personally seen and examined this patient.: Yes I have fully participated in the care of the patient.: Yes I have reviewed all pertinent clinical information, including history, physical exam and plan: Yes Notes (Text): Pt was seen and examined at bedside Agree with above note and assessment Pt is improving clinically WBC is normal today OOB to walk DVT prophylaxis Reg diet Plan d.w pt in detail Risk and benefit explained in detail
[2017-04-15] MEDS ORDERED: Oxycodone/Acetaminophen 5/325 mg Tab PO PRN (11:26)
[2017-04-15] MEDS: Enoxaparin 40 mg Syringe SC SCH (16:48)
--- NOTE | 2017-04-15 20:57 | CP.PCM.CON ---
History of Present Illness - History of Present Illness History of Present Illness: Pulmonary consult. 56 y/o F sent by her PMD to [facility] on 04/11/17 due to abdominal pain RLQ gradually increased a week [employer], radiated to back, associated to nausea, with no relief. Pt was founded with Appendicitis and underwent surgical intervention ( Lap kecia) on 04/12/17. Worsening condition: On evaluation while in the ED, Pt had a CXR showing RUL masses. CT chest done on 04/13/17, shows: 2 large masses RUL and multiple nodular densities probable multiple metastatic lesions through the remaining lung field. Patient with no previous Pulmonary Hx. Pt denied: Fever, chills, sweats, SOB, cough, hemoptysis, dizziness, CP, palpitations, syncope, numbness, sick contact, recent travel out of [facility]. Review of Systems - Constitutional Constitutional: Other (negative) - EENT Eyes: Other (negative) Ears: Other (negative) Nose/Mouth/Throat: Other (negative) - Cardiovascular Cardiovascular: Other (negative) - Respiratory Respiratory: Other (negative) - Gastrointestinal Gastrointestinal: Abdominal Pain - Genitourinary Genitourinary: Other (negative) - Musculoskeletal Musculoskeletal: Other (negative) - Integumentary Integumentary: Other - Neurological Neurological: Other (negative) - Psychiatric Psychiatric: Other (negative) - Endocrine Endocrine: Other (negative) - Hematologic/Lymphatic Hematologic: Other (negative) Past Patient History - Infectious Disease Hx of Infectious Diseases: None - Past Medical History & Family History Past Medical History?: No Pertinent Family History: Unknown - Past Social History Smoking Status: 2nd hand smoker from parents Alcohol: None Drugs: Denies Home Situation {Lives}: With Family - CARDIAC Hx Cardiac Disorders: No - PULMONARY Hx Respiratory Disorders: No - NEUROLOGICAL Hx Neurological Disorder: No - HEENT Hx HEENT Problems: No - RENAL Hx Chronic Kidney Disease: No - ENDOCRINE/METABOLIC Hx Endocrine Disorders: No - HEMATOLOGICAL/ONCOLOGICAL Hx Blood Disorders: No - INTEGUMENTARY Hx Dermatological Problems: No - MUSCULOSKELETAL/RHEUMATOLOGICAL Hx Musculoskeletal Disorders: No Hx Falls: No - GASTROINTESTINAL Hx Gastrointestinal Disorders: No - GENITOURINARY/GYNECOLOGICAL Hx Genitourinary Disorders: No - PSYCHIATRIC Hx Psychophysiologic Disorder: No Hx Substance Use: No - SURGICAL HISTORY Hx Surgeries: Yes Hx Gastric Bypass Surgery: Yes Hx Orthopedic Surgery: Yes (b/l knee and L foot sx) - ANESTHESIA Hx Anesthesia: Yes Hx Anesthesia Reactions: No Meds Allergies/Adverse Reactions: Allergies Allergy/AdvReac Type Severity Reaction Status Date / Time No Known Allergies Allergy Verified 04/11/17 15:13 - Medications Medications: Current Medications Enoxaparin Sodium (Lovenox) 40 mg SC DAILY [facility] PRN Reason: Protocol Last Admin: 04/15/17 16:48 Dose: 40 mg Metronidazole (Flagyl 500mg/100ml Ns) 100 mls @ 100 mls/hr IVPB Q8 [facility] PRN Reason: Protocol Last Admin: 04/15/17 16:47 Dose: 100 mls/hr Piperacillin Sod/Tazobactam (Sod 3.375 gm/ Sodium Chloride) 100 mls @ 100 mls/ hr IVPB Q6 [facility] PRN Reason: Protocol Last Admin: 04/15/17 16:49 Dose: 100 mls/hr Sodium Chloride (Sodium Chloride 0.9%) 1,000 mls @ 100 mls/hr IV .Q10H [facility] Stop: 04/16/17 08:49 Last Admin: 04/15/17 09:24 Dose: 100 mls/hr Ketorolac Tromethamine (Toradol) 30 mg IVP Q6 PRN PRN Reason: Pain, moderate (4-7) Last Admin: 04/15/17 17:01 Dose: 30 mg Ondansetron HCl (Zofran Inj) 4 mg IVP Q4 PRN PRN Reason: Nausea/Vomiting Last Admin: 04/15/17 08:32 Dose: 4 mg Oxycodone/Acetaminophen (Percocet 5/325 Mg Tab) 1 tab PO Q4 PRN PRN Reason: Pain, moderate (4-7) Stop: 04/18/17 11:27 Last Admin: 04/15/17 11:46 Dose: 1 tab Pantoprazole Sodium (Protonix Ec Tab) 20 mg PO DAILY [facility] Last Admin: 04/15/17 16:55 Dose: 20 mg Physical Exam - Constitutional Appears: No Acute Distress - Head Exam Head Exam: NORMAL INSPECTION - Eye Exam Eye Exam: PERRL - ENT Exam ENT Exam: Normal Exam - Neck Exam Neck exam: Positive for: Normal Inspection - Respiratory Exam Respiratory Exam: NORMAL BREATHING PATTERN - Cardiovascular Exam Cardiovascular Exam: REGULAR RHYTHM - GI/Abdominal Exam GI & Abdominal Exam: Normal Bowel Sounds, Soft. absent: Distended, Tenderness Additional comments: Dressing c/d/i - Extremities Exam Extremities exam: Positive for: normal inspection - Neurological Exam Neurological exam: Alert, Oriented x3 Additional comments: No motor sensory deficit. - Psychiatric Exam Psychiatric exam: Normal Affect, Normal Mood - Skin Skin Exam: Warm Results - Vital Signs Recent Vital Signs: Last Vital Signs Temp 98.4 F 04/15/17 16:06 Pulse 65 04/15/17 16:06 Resp 18 04/15/17 16:06 BP 144/84 04/15/17 16:06 Pulse Ox 98 04/15/17 16:06 reviewed J.P. - Labs Result Diagrams: 04/15/17 06:15 04/15/17 06:15 Labs: Laboratory Results - last 24 hr 04/15/17 04/15/17 06:15 06:15 WBC 7.4 RBC 3.94 Hgb 11.0 L Hct 32.8 L MCV 83.3 MCH 27.8 MCHC 33.4 RDW 13.2 Plt Count 269 Sodium 144 Potassium 3.6 Chloride 107 Carbon Dioxide 26 Anion Gap 15 BUN 9 Creatinine 0.6 L Est GFR ( Amer) > 60 Est GFR (Non-Af Amer) > 60 Random Glucose 85 Calcium 8.5 Total Bilirubin 0.8 AST 20 ALT 23 Alkaline Phosphatase 70 Total Protein 6.5 Albumin 3.2 L Globulin 3.3 Albumin/Globulin Ratio 1.0 reviewed J.P. - EKG Data EKG comments: reviewed J.P. - Imaging and Cardiology Chest x-ray Status: Report reviewed by me (RupaP.) CT scan - chest Status: Report reviewed by me (JGabeP.) CT scan - abdomen Status: Report reviewed by me (RupaP.) CT scan - pelvis Status: Report reviewed by me (RupaP.) Assessment & Plan (1) Mass of upper lobe of right lung Status: Acute Priority: High Comment: 2 large masses. (2) Multiple lung nodules on CT Status: Acute (3) S/P laparoscopic cholecystectomy Status: Acute - Assessment and Plan (Free Text) Plan: IR consult for R lung mass needle Bx - Date & Time Date: 04/15/17 Time: 18:30
[2017-04-16] MEDS: metroNIDAZOLE 500mg/100ml NS 100 ML IVPB SCH ×4 (00:40→18:02)
[2017-04-16] MEDS: Piperacillin/Tazobact 3.375 GM in Sodium Chloride 0.9% 100 ML IVPB SCH ×4 (04:15→21:56)
[2017-04-16] MEDS: Sodium Chloride 0.9% 1,000 ML IV SCH (05:11)
[2017-04-16] MEDS ORDERED: Alum-Mag Hydrox-Simethicone Susp (30 mL) PO ONE (05:21)
--- NOTE | 2017-04-16 08:16 | CP.PCM.PN ---
<JuniorMellisa - Last Filed: 04/16/17 08:13> Subjective - Date & Time of Evaluation Date of Evaluation: 04/16/17 Time of Evaluation: 07:00 - Subjective Subjective: General Surgery Dr. Stacy Pt S&E @bedside. NAEO. Pt reports fatigue due to poor sleep. Pt anxious for pathology results and concerned about potential lung Bx results. Pt denies F/C, N/V, D/C. tolerating regular diet. (+)BM Objective - Vital Signs/Intake and Output Vital Signs (last 24 hours): Temp Pulse Resp BP Pulse Ox 98.3 F 64 19 149/84 97 04/16/17 00:59 04/16/17 00:59 04/16/17 00:59 04/16/17 00:59 04/16/17 00:59 Intake and Output: 04/16/17 04/16/17 06:59 18:59 Intake Total 1200 Output Total 40 Balance 1160 - Medications Medications: Current Medications Enoxaparin Sodium (Lovenox) 40 mg SC DAILY [facility] PRN Reason: Protocol Last Admin: 04/15/17 16:48 Dose: 40 mg Metronidazole (Flagyl 500mg/100ml Ns) 100 mls @ 100 mls/hr IVPB Q8 [facility] PRN Reason: Protocol Last Admin: 04/16/17 00:41 Dose: 100 mls/hr Piperacillin Sod/Tazobactam (Sod 3.375 gm/ Sodium Chloride) 100 mls @ 100 mls/ hr IVPB Q6 [facility] PRN Reason: Protocol Last Admin: 04/16/17 04:15 Dose: 100 mls/hr Sodium Chloride (Sodium Chloride 0.9%) 1,000 mls @ 100 mls/hr IV .Q10H [facility] Stop: 04/16/17 08:49 Last Admin: 04/16/17 05:11 Dose: 100 mls/hr Ketorolac Tromethamine (Toradol) 30 mg IVP Q6 PRN PRN Reason: Pain, moderate (4-7) Last Admin: 04/16/17 00:23 Dose: 30 mg Ondansetron HCl (Zofran Inj) 4 mg IVP Q4 PRN PRN Reason: Nausea/Vomiting Last Admin: 04/16/17 00:27 Dose: 4 mg Oxycodone/Acetaminophen (Percocet 5/325 Mg Tab) 1 tab PO Q4 PRN PRN Reason: Pain, moderate (4-7) Stop: 04/18/17 11:27 Last Admin: 04/15/17 11:46 Dose: 1 tab Pantoprazole Sodium (Protonix Ec Tab) 20 mg PO DAILY [facility] Last Admin: 04/15/17 16:55 Dose: 20 mg - Labs Labs: 04/15/17 06:15 04/15/17 06:15 PT 12.5 Seconds (9.8-13.1) 04/11/17 16:35 INR 1.1 (0.9-1.2) 04/11/17 16:35 APTT 32.6 Seconds (25.6-37.1) 04/11/17 16:35 - Constitutional Appears: Non-toxic, No Acute Distress - Head Exam Head Exam: NORMAL INSPECTION - Eye Exam Eye Exam: Normal appearance - ENT Exam ENT Exam: Mucous Membranes Moist - Respiratory Exam Respiratory Exam: NORMAL BREATHING PATTERN. absent: Accessory Muscle Use, Respiratory Distress - GI/Abdominal Exam GI & Abdominal Exam: Soft. absent: Distended, Guarding, Tenderness, Rebound Additional comments: dressings c/d/i - Extremities Exam Extremities Exam: Normal Inspection - Neurological Exam Neurological Exam: Alert, Awake, Oriented x3 - Psychiatric Exam Psychiatric exam: Normal Affect, Normal Mood - Skin Skin Exam: Dry, Intact, Normal Color, Warm Assessment and Plan - Assessment and Plan (Free Text) Assessment: 56 y/o F POD#4 s/p Lap appy - Lung Bx Saturday - cont pain management - f/u pathology report - ADAT - monitor drain outputs - encourage OOB to chair/Amb/IS use Pt discussed w/ Dr. Regis Pacheco DO PGY2 <Kenny Stacy - Last Filed: 04/18/17 20:59> Objective - Vital Signs/Intake and Output Vital Signs (last 24 hours): Temp Pulse Resp BP Pulse Ox 97.9 F 83 18 138/83 99 04/18/17 08:12 04/18/17 08:12 04/18/17 08:12 04/18/17 08:12 04/18/17 08:12 - Labs Labs: 04/15/17 06:15 04/15/17 06:15 PT 12.5 Seconds (9.8-13.1) 04/11/17 16:35 INR 1.1 (0.9-1.2) 04/11/17 16:35 APTT 32.6 Seconds (25.6-37.1) 04/11/17 16:35 Attending/Attestation - Attestation I have personally seen and examined this patient.: Yes I have fully participated in the care of the patient.: Yes I have reviewed all pertinent clinical information, including history, physical exam and plan: Yes Notes (Text): Pt was seen and examined at bedside Agree with above note and assessment Pt is improving clinically Awaiting path report IR guided biopsy of lung nodule tomorrow
[2017-04-16] MEDS: Enoxaparin 40 mg Syringe SC SCH (08:27)
--- NOTE | 2017-04-16 15:39 | CP.PCM.PN ---
Subjective - Date & Time of Evaluation Date of Evaluation: 04/16/17 Time of Evaluation: 09:30 - Subjective Subjective: F/U Mass RUL no AD , N/C , no SOB , no Cough Objective - Vital Signs/Intake and Output Vital Signs (last 24 hours): Temp Pulse Resp BP Pulse Ox 98.5 F 66 20 124/79 98 04/16/17 09:00 04/16/17 09:00 04/16/17 09:00 04/16/17 09:00 04/16/17 09:00 Intake and Output: 04/16/17 04/16/17 06:59 18:59 Intake Total 1200 Output Total 40 Balance 1160 - Medications Medications: Current Medications Diphenhydramine HCl (Benadryl) 25 mg PO HS PRN PRN Reason: Insomnia Docusate Sodium (Colace) 100 mg PO DAILY [facility] Enoxaparin Sodium (Lovenox) 40 mg SC DAILY [facility] PRN Reason: Protocol Last Admin: 04/16/17 08:27 Dose: 40 mg Metronidazole (Flagyl 500mg/100ml Ns) 100 mls @ 100 mls/hr IVPB Q8 [facility] PRN Reason: Protocol Last Admin: 04/16/17 08:26 Dose: 100 mls/hr Piperacillin Sod/Tazobactam (Sod 3.375 gm/ Sodium Chloride) 100 mls @ 100 mls/ hr IVPB Q6 [facility] PRN Reason: Protocol Last Admin: 04/16/17 11:20 Dose: 100 mls/hr Ketorolac Tromethamine (Toradol) 30 mg IVP Q6 PRN PRN Reason: Pain, moderate (4-7) Last Admin: 04/16/17 00:23 Dose: 30 mg Lactulose (Enulose) 10 gm PO DAILY PRN PRN Reason: Constipation Ondansetron HCl (Zofran Inj) 4 mg IVP Q4 PRN PRN Reason: Nausea/Vomiting Last Admin: 04/16/17 00:27 Dose: 4 mg Oxycodone/Acetaminophen (Percocet 5/325 Mg Tab) 1 tab PO Q4 PRN PRN Reason: Pain, moderate (4-7) Stop: 04/18/17 11:27 Last Admin: 04/15/17 11:46 Dose: 1 tab Pantoprazole Sodium (Protonix Ec Tab) 40 mg PO DAILY [facility] - Labs Labs: 02/12/18 06:15 04/15/17 06:15 PT 12.5 Seconds (9.8-13.1) 04/11/17 16:35 INR 1.1 (0.9-1.2) 04/11/17 16:35 APTT 32.6 Seconds (25.6-37.1) 04/11/17 16:35 - Constitutional Appears: No Acute Distress - Head Exam Head Exam: NORMAL INSPECTION - Eye Exam Eye Exam: PERRL - ENT Exam ENT Exam: Normal Exam - Neck Exam Neck Exam: Normal Inspection - Respiratory Exam Respiratory Exam: NORMAL BREATHING PATTERN - Cardiovascular Exam Cardiovascular Exam: REGULAR RHYTHM - GI/Abdominal Exam GI & Abdominal Exam: Soft, Normal Bowel Sounds Additional comments: Dressing c/d/i - Extremities Exam Extremities Exam: Normal Inspection - Back Exam Back Exam: NORMAL INSPECTION - Neurological Exam Neurological Exam: Alert, Oriented x3. absent: Motor Sensory Deficit - Psychiatric Exam Psychiatric exam: Normal Affect, Normal Mood - Skin Skin Exam: Warm Assessment and Plan (1) Mass of upper lobe of right lung Assessment & Plan: 2 masses Status: Acute (2) Multiple lung nodules on CT Status: Acute (3) S/P laparoscopic cholecystectomy Status: Acute - Assessment and Plan (Free Text) Plan: IR for CT guided needle RUL mass in am
[2017-04-16] MEDS: Pantoprazole 40 mg EC Tab PO SCH (17:30)
[2017-04-17] MEDS: metroNIDAZOLE 500mg/100ml NS 100 ML IVPB SCH ×3 (01:20→16:18)
[2017-04-17] MEDS: Piperacillin/Tazobact 3.375 GM in Sodium Chloride 0.9% 100 ML IVPB SCH ×4 (04:00→21:30)
[2017-04-17 07:05] LABS: T4 9.89 ug/dl (5.5-11.0)
[2017-04-17 07:18] LABS: T3 0.826 nmol/L (1.49-2.60)
[2017-04-17] MEDS: Pantoprazole 40 mg EC Tab PO SCH ×2 (08:45→13:13)
--- NOTE | 2017-04-17 09:07 | PN ---
DATE: 04/16/2017 SUBJECTIVE: The patient is seen and examined. Interim events noted. Consults noted and appreciated. Pulmonary and Surgery followup and interventions noted and appreciated. The patient is tentatively scheduled for biopsy tomorrow. The patient feels better. Tolerating food without any distress. Did have episodes of diarrhea and nauseous feeling, but no chest pain, and no shortness of breath. Abdominal pain is well controlled. PHYSICAL EXAMINATION GENERAL: The patient is in no acute distress. VITAL SIGNS: Stable. HEART: S1 and S2, normal and regular. LUNGS: Good bilateral air exchange. ABDOMEN: Soft and nontender. Abdominal exam is essentially unchanged. No sign of acute complication. No guarding. No rigidity. No rebound. Bowel sounds are present and normal. EXTREMITIES: No edema. No calf swelling. No tenderness. No acute ischemia. CENTRAL NERVOUS SYSTEM: Exam is essentially unchanged. DIAGNOSTIC DATA: Available diagnostic data reviewed. PLAN: Overall, the patient is slowly improving. The patient is tentatively scheduled for biopsy tomorrow. Plan as ordered. Case and plan discussed with the patient. Fredy Perez MD
[2017-04-17] MEDS ORDERED: Midazolam 2 MG/2 ML VIAL ONE (09:10)
[2017-04-17] MEDS ORDERED: Lactated Ringer's 500 ML IV ONE (10:00)
--- NOTE | 2017-04-17 10:09 | PCM.SURG1 ---
Surgeon's Initial Post Op Note - Surgeon's Notes Surgeon: Clay Houston MD Movie Producer: None Type of Anesthesia: MAC Pre-Operative Diagnosis: RUL Masses Operative Findings: large adjacent right upper lobe masses; innumerable satellite nodules Post-Operative Diagnosis: same Operation Performed: CT Guided RUL Mass Core Biopsy Specimen/Specimens Removed: RUL mass 20 gauge core biopsy x3 Estimated Blood Loss: EBL {In ML}: 0 Post-Op Condition: Good Date of Surgery/Procedure: 04/17/17 Time of Surgery/Procedure: 10:00
[2017-04-17] MEDS ORDERED: Sodium Chloride 0.9% 1,000 ML IV SCH (10:15)
--- NOTE | 2017-04-17 11:20 | CP.PCM.PN ---
<Mellisa Pacheco - Last Filed: 04/17/17 11:16> Subjective - Date & Time of Evaluation Date of Evaluation: 04/17/17 Time of Evaluation: 10:00 - Subjective Subjective: General Surgery Dr. Stacy Pt away at IR for lung Bx during rounds. WILLIS. will reassess pt after Bx. Objective - Vital Signs/Intake and Output Vital Signs (last 24 hours): Temp Pulse Resp BP Pulse Ox 98.9 F 68 20 149/82 97 04/17/17 11:00 04/17/17 10:30 04/17/17 11:00 04/17/17 11:00 04/17/17 11:00 Intake and Output: 04/17/17 04/17/17 06:59 18:59 Intake Total 1300 Output Total 10 Balance 1290 - Medications Medications: Current Medications Alprazolam (Xanax) 0.25 mg PO TID [facility] Stop: 04/24/17 09:01 Last Admin: 04/17/17 08:45 Dose: Not Given Diphenhydramine HCl (Benadryl) 25 mg PO HS PRN PRN Reason: Insomnia Docusate Sodium (Colace) 100 mg PO DAILY [facility] Last Admin: 04/17/17 08:44 Dose: Not Given Enoxaparin Sodium (Lovenox) 40 mg SC DAILY [facility] PRN Reason: Protocol Last Admin: 04/16/17 08:27 Dose: 40 mg Metronidazole (Flagyl 500mg/100ml Ns) 100 mls @ 100 mls/hr IVPB Q8 [facility] PRN Reason: Protocol Last Admin: 04/17/17 10:25 Dose: 100 mls Piperacillin Sod/Tazobactam (Sod 3.375 gm/ Sodium Chloride) 100 mls @ 100 mls/ hr IVPB Q6 [facility] PRN Reason: Protocol Last Admin: 04/17/17 04:00 Dose: 100 mls/hr Sodium Chloride (Sodium Chloride 0.9%) 1,000 mls @ 100 mls/hr IV .Q10H [facility] Ketorolac Tromethamine (Toradol) 30 mg IVP Q6 PRN PRN Reason: Pain, moderate (4-7) Last Admin: 04/16/17 00:23 Dose: 30 mg Lactulose (Enulose) 10 gm PO DAILY PRN PRN Reason: Constipation Ondansetron HCl (Zofran Inj) 4 mg IVP Q4 PRN PRN Reason: Nausea/Vomiting Last Admin: 04/16/17 00:27 Dose: 4 mg Oxycodone/Acetaminophen (Percocet 5/325 Mg Tab) 1 tab PO Q4 PRN PRN Reason: Pain, moderate (4-7) Stop: 04/18/17 11:27 Last Admin: 04/15/17 11:46 Dose: 1 tab Pantoprazole Sodium (Protonix Ec Tab) 40 mg PO DAILY [facility] Last Admin: 04/17/17 08:45 Dose: Not Given - Labs Labs: 04/15/17 06:15 04/15/17 06:15 PT 12.5 Seconds (9.8-13.1) 04/11/17 16:35 INR 1.1 (0.9-1.2) 04/11/17 16:35 APTT 32.6 Seconds (25.6-37.1) 04/11/17 16:35 Assessment and Plan - Assessment and Plan (Free Text) Assessment: 56 y/o F POD#5 s/p Lap appy - pathology reports shows acute appendicitis - cont pain management - f/u Lung Bx results - cont medical management - pt cleared for discharge from surgical standpoint - encourage OOB to chair/Amb/IS use Pt discussed w/ Dr. Regis Pacheco DO PGY2 <Kenny Stacy - Last Filed: 04/18/17 21:03> Objective - Vital Signs/Intake and Output Vital Signs (last 24 hours): Temp Pulse Resp BP Pulse Ox 97.9 F 83 18 138/83 99 04/18/17 08:12 04/18/17 08:12 04/18/17 08:12 04/18/17 08:12 04/18/17 08:12 - Labs Labs: 04/15/17 06:15 04/15/17 06:15 PT 12.5 Seconds (9.8-13.1) 04/11/17 16:35 INR 1.1 (0.9-1.2) 04/11/17 16:35 APTT 32.6 Seconds (25.6-37.1) 04/11/17 16:35 Attending/Attestation - Attestation I have personally seen and examined this patient.: Yes I have fully participated in the care of the patient.: Yes I have reviewed all pertinent clinical information, including history, physical exam and plan: Yes Notes (Text): Pt was seen and examined at bedside Agree with above note and assessment Pt is improved clinically Path: Acute perforated appendicitis, No Malignancy Awaiting lung biopsy DC plan tomorrow Plan d.w pt in detail Risk and benefit explained in detail
[2017-04-17 11:22] VITALS: RESP 18
--- NOTE | 2017-04-17 13:13 | PN ---
DATE: 04/17/2017 SUBJECTIVE: The patient is seen and examined. Interim events noted. Consults noted and appreciated. Pulmonary followup and intervention noted and appreciated. The patient remains on regular medical floor. The patient is scheduled for lung biopsy today. The patient feels better. Abdominal pain resolved. No coughing. No chest pain. No abdominal pain. Tolerated food very well. PHYSICAL EXAMINATION: GENERAL: The patient is in no acute distress. VITAL SIGNS: Stable. Temperature is 98.5, pulse is 70, respirations are 18, blood pressure is 159/81, and oxygen saturation is 93%. HEART: S1 and S2, normal and regular. LUNGS: Good bilateral air exchange. ABDOMEN: Soft and nontender. No organomegaly. No fluid. Bowel sounds are present and normal. SHERRY is still draining serosanguineous liquid, but no blood. No sign of acute abdomen. No guarding. No rigidity. No rebound. EXTREMITIES: No edema. No calf swelling. No tenderness. No acute ischemia. CENTRAL NERVOUS SYSTEM: Essentially unchanged. DIAGNOSTIC DATA: Available diagnostic data reviewed. TSH level is less than 0.02 consistent with hyperthyroidism. PLAN: As ordered. Case and plan discussed with the patient. Fredy Perez MD
--- NOTE | 2017-04-17 14:08 | CT ---
PROCEDURE: CT-GUIDED RIGHT LUNG BIOPSY CLINICAL HISTORY: 56-year-old female with right upper lobe masses is referred to Interventional Radiology for percutaneous image-guided core needle biopsy. COMPARISON: CT scan of the chest dated 04/13/2017. PROCEDURE: 1. Focused CT of the right hemithorax. 2. CT-guided core needle biopsy of the right upper lobe mass. PRE-PROCEDURE FINDINGS: 1. Adjacent right upper lobe masses with innumerable small satellite nodules. POST-PROCEDURE FINDINGS: 1. No evidence of post-procedural complication. INTERVENTIONAL RADIOLOGIST: Clay Houston M.D. (the attending was present for the entire procedure) ANESTHESIA: Provided by the attending anesthesiologist. Sedation was supervised by the anesthesiology attending with the presence of independent radiology nursing monitoring. Physiological data monitoring was performed throughout the entire procedure. The patient's blood pressure, EKG and pulse oximetry were recorded. The patient tolerated the procedure and sedation without untoward reactions. The intra-procedural sedation time was 15 minutes. MEDICATIONS: Lidocaine 1% for local subcutaneous analgesia. COMPLICATIONS: None. PROCEDURE DESCRIPTION AND FINDINGS: The risks, benefits, alternatives and possible complications of the procedure were fully discussed; all questions were answered and informed consent was obtained. The patient was brought into the interventional suite and a pre-procedure 'time-out' was performed. The patient was placed on the CT table in the supine position. The lesion was localized under CT-guidance and a roberta was made on the skin site overlying the lesion. The right upper chest was prepped and draped in the usual sterile fashion. Maximum sterile barrier precautions were maintained throughout the entire procedure. Preliminary focused CT images of the right hemithorax again demonstrate adjacent right upper lobe masses with innumerable small satellite nodules. Following subcutaneous infiltration of lidocaine 1% for local analgesia, under CT-guidance, a 19-gauge trocar needle was advanced into the right upper lobe mass. The inner stylet was carefully removed. A 20-gauge biopsy device was coaxially loaded into the introducer needle and a total of 3 core needle biopsies were obtained. The biopsy device and trocar needle were removed. Adequate hemostasis was achieved utilizing manual compression. A sterile adhesive dressing was applied over the puncture site. Post-procedure imaging demonstrated no complications. The patient tolerated the procedure well without immediate post-procedure complications and was transferred to the interventional radiology recovery area in stable condition. IMPRESSION: Successful CT-guided core needle biopsy of the right upper lobe mass. A total of 3 samples were obtained.
--- NOTE | 2017-04-17 14:34 | CP.PCM.PN ---
Subjective - Date & Time of Evaluation Date of Evaluation: 04/17/17 Time of Evaluation: 12:40 - Subjective Subjective: Mass RUL no A/D , N/C , no SOB , no C/P , patient had CT guided needle Lung Bx yesterday 04-17-17 Objective - Vital Signs/Intake and Output Vital Signs (last 24 hours): Temp Pulse Resp BP Pulse Ox 98.5 F 70 18 159/81 H 93 L 04/17/17 11:17 04/17/17 11:17 04/17/17 11:17 04/17/17 11:17 04/17/17 11:17 Intake and Output: 04/17/17 04/17/17 06:59 18:59 Intake Total 1300 Output Total 10 Balance 1290 - Medications Medications: Current Medications Alprazolam (Xanax) 0.25 mg PO TID [facility] Stop: 04/24/17 09:01 Last Admin: 04/17/17 13:15 Dose: 0.25 mg Diphenhydramine HCl (Benadryl) 25 mg PO HS PRN PRN Reason: Insomnia Docusate Sodium (Colace) 100 mg PO DAILY [facility] Last Admin: 04/17/17 13:13 Dose: Not Given Enoxaparin Sodium (Lovenox) 40 mg SC DAILY [facility] PRN Reason: Protocol Last Admin: 04/16/17 08:27 Dose: 40 mg Metronidazole (Flagyl 500mg/100ml Ns) 100 mls @ 100 mls/hr IVPB Q8 [facility] PRN Reason: Protocol Last Admin: 04/17/17 10:25 Dose: 100 mls Piperacillin Sod/Tazobactam (Sod 3.375 gm/ Sodium Chloride) 100 mls @ 100 mls/ hr IVPB Q6 [facility] PRN Reason: Protocol Last Admin: 04/17/17 12:27 Dose: 100 mls/hr Sodium Chloride (Sodium Chloride 0.9%) 1,000 mls @ 100 mls/hr IV .Q10H [facility] Last Admin: 04/17/17 11:31 Dose: Not Given Ketorolac Tromethamine (Toradol) 30 mg IVP Q6 PRN PRN Reason: Pain, moderate (4-7) Last Admin: 04/16/17 00:23 Dose: 30 mg Lactulose (Enulose) 10 gm PO DAILY PRN PRN Reason: Constipation Ondansetron HCl (Zofran Inj) 4 mg IVP Q4 PRN PRN Reason: Nausea/Vomiting Last Admin: 04/16/17 00:27 Dose: 4 mg Oxycodone/Acetaminophen (Percocet 5/325 Mg Tab) 1 tab PO Q4 PRN PRN Reason: Pain, moderate (4-7) Stop: 04/18/17 11:27 Last Admin: 04/15/17 11:46 Dose: 1 tab Pantoprazole Sodium (Protonix Ec Tab) 40 mg PO DAILY [facility] Last Admin: 04/17/17 13:13 Dose: 40 mg - Labs Labs: 04/15/17 06:15 04/15/17 06:15 PT 12.5 Seconds (9.8-13.1) 04/11/17 16:35 INR 1.1 (0.9-1.2) 04/11/17 16:35 APTT 32.6 Seconds (25.6-37.1) 04/11/17 16:35 - Constitutional Appears: No Acute Distress - Head Exam Head Exam: NORMAL INSPECTION - Eye Exam Eye Exam: PERRL - ENT Exam ENT Exam: Normal Exam - Neck Exam Neck Exam: Normal Inspection - Respiratory Exam Respiratory Exam: NORMAL BREATHING PATTERN Additional comments: tape over the area of needle Bx - Cardiovascular Exam Cardiovascular Exam: REGULAR RHYTHM - GI/Abdominal Exam GI & Abdominal Exam: Soft, Normal Bowel Sounds Additional comments: Dressing c/d/i - Extremities Exam Extremities Exam: Normal Inspection - Neurological Exam Neurological Exam: Alert, Oriented x3. absent: Motor Sensory Deficit - Psychiatric Exam Psychiatric exam: Normal Affect, Normal Mood - Skin Skin Exam: Warm Assessment and Plan (1) Mass of upper lobe of right lung Status: Acute (2) Multiple lung nodules on CT Status: Acute (3) S/P laparoscopic cholecystectomy Status: Acute - Assessment and Plan (Free Text) Plan: Stable post CT R Lung mass needle Bx, CXR no PTX , continue current treatment , f/u Bx
--- NOTE | 2017-04-17 14:36 | RAD ---
HISTORY: s/p RUL biopsy, evaluate for PTX COMPARISON: CT chest dated 04/13/2017. FINDINGS: LUNGS: Adjacent right upper lobe mass is redemonstrated. . PLEURA: No significant pleural effusion identified, no pneumothorax apparent. CARDIOVASCULAR: Normal. OSSEOUS STRUCTURES: Anterior cervical fixation plate. Unchanged. VISUALIZED UPPER ABDOMEN: Normal. OTHER FINDINGS: None. IMPRESSION: Redemonstration of known right upper lobe lung masses. No appreciable pneumothorax post right lung biopsy.
[2017-04-18] MEDS: metroNIDAZOLE 500mg/100ml NS 100 ML IVPB SCH ×2 (00:20→08:30)
[2017-04-18] MEDS: Piperacillin/Tazobact 3.375 GM in Sodium Chloride 0.9% 100 ML IVPB SCH (03:55)
--- NOTE | 2017-04-18 08:10 | CP.PCM.PN ---
Addendum entered and electronically signed by Mellisa Pacheco DO 04/18/17 08:37: Drain to be removed today cleared for dicharge to home on Cipro/Flagyl for 7 days Pt should follow up w/ Dr. Stacy in office next week Original Note: <Mellisa Pacheco - Last Filed: 04/18/17 08:08> Subjective - Date & Time of Evaluation Date of Evaluation: 04/18/17 Time of Evaluation: 07:00 - Subjective Subjective: General Surgery Dr. Stacy Pt S&E @bedside. Pt underwent CT-guided lung Bx yesterday. Pt tolerated the procedure well w/ no complications. NAEO. Pt denies abd pain, F/C, N/V, D/C. Tolerating regular diet. (+)BM/Flatus Objective - Vital Signs/Intake and Output Vital Signs (last 24 hours): Temp Pulse Resp BP Pulse Ox 98.1 F 71 18 136/80 96 04/18/17 00:22 04/18/17 00:22 04/18/17 00:22 04/18/17 00:22 04/18/17 00:22 - Medications Medications: Current Medications Alprazolam (Xanax) 0.25 mg PO TID@0900,1700,2100 COUNTS INCLUDE 234 BEDS AT THE [facility] Stop: 04/24/17 09:01 Last Admin: 04/17/17 21:30 Dose: 0.25 mg Diphenhydramine HCl (Benadryl) 25 mg PO HS PRN PRN Reason: Insomnia Docusate Sodium (Colace) 100 mg PO DAILY COUNTS INCLUDE 234 BEDS AT THE [facility] Last Admin: 04/17/17 13:13 Dose: Not Given Enoxaparin Sodium (Lovenox) 40 mg SC DAILY [facility] PRN Reason: Protocol Last Admin: 04/16/17 08:27 Dose: 40 mg Metronidazole (Flagyl 500mg/100ml Ns) 100 mls @ 100 mls/hr IVPB Q8 [facility] PRN Reason: Protocol Last Admin: 04/18/17 00:20 Dose: 100 mls/hr Piperacillin Sod/Tazobactam (Sod 3.375 gm/ Sodium Chloride) 100 mls @ 100 mls/ hr IVPB Q6 [facility] PRN Reason: Protocol Last Admin: 04/18/17 03:55 Dose: 100 mls/hr Sodium Chloride (Sodium Chloride 0.9%) 1,000 mls @ 100 mls/hr IV .Q10H COUNTS INCLUDE 234 BEDS AT THE [facility] Last Admin: 04/17/17 11:31 Dose: Not Given Ketorolac Tromethamine (Toradol) 30 mg IVP Q6 PRN PRN Reason: Pain, moderate (4-7) Last Admin: 04/16/17 00:23 Dose: 30 mg Lactulose (Enulose) 10 gm PO DAILY PRN PRN Reason: Constipation Ondansetron HCl (Zofran Inj) 4 mg IVP Q4 PRN PRN Reason: Nausea/Vomiting Last Admin: 04/16/17 00:27 Dose: 4 mg Oxycodone/Acetaminophen (Percocet 5/325 Mg Tab) 1 tab PO Q4 PRN PRN Reason: Pain, moderate (4-7) Stop: 04/18/17 11:27 Last Admin: 04/15/17 11:46 Dose: 1 tab Pantoprazole Sodium (Protonix Ec Tab) 40 mg PO DAILY COUNTS INCLUDE 234 BEDS AT THE [facility] Last Admin: 04/17/17 13:13 Dose: 40 mg - Labs Labs: 04/15/17 06:15 04/15/17 06:15 PT 12.5 Seconds (9.8-13.1) 04/11/17 16:35 INR 1.1 (0.9-1.2) 04/11/17 16:35 APTT 32.6 Seconds (25.6-37.1) 04/11/17 16:35 - Constitutional Appears: Non-toxic, No Acute Distress - Head Exam Head Exam: NORMAL INSPECTION - Eye Exam Eye Exam: Normal appearance - ENT Exam ENT Exam: Mucous Membranes Moist - Respiratory Exam Respiratory Exam: NORMAL BREATHING PATTERN. absent: Accessory Muscle Use, Respiratory Distress - GI/Abdominal Exam GI & Abdominal Exam: Soft. absent: Distended, Guarding, Tenderness, Rebound Additional comments: incisions c/d/i drain w/ scant serous output - Extremities Exam Extremities Exam: Normal Inspection - Neurological Exam Neurological Exam: Alert, Awake, Oriented x3 - Psychiatric Exam Psychiatric exam: Normal Affect, Normal Mood - Skin Skin Exam: Dry, Intact, Normal Color, Warm Assessment and Plan - Assessment and Plan (Free Text) Assessment: 56 y/o F POD#6 s/p Lap appy - f/u Lung Bx results - cont medical management - pt cleared for discharge from surgical standpoint - encourage OOB to chair/Amb/IS use Pt discussed w/ Dr. Regis Pacheco DO PGY2 <Kenny Stacy - Last Filed: 04/18/17 21:05> Objective - Vital Signs/Intake and Output Vital Signs (last 24 hours): Temp Pulse Resp BP Pulse Ox 97.9 F 83 18 138/83 99 04/18/17 08:12 04/18/17 08:12 04/18/17 08:12 04/18/17 08:12 04/18/17 08:12 - Labs Labs: 04/15/17 06:15 04/15/17 06:15 PT 12.5 Seconds (9.8-13.1) 04/11/17 16:35 INR 1.1 (0.9-1.2) 04/11/17 16:35 APTT 32.6 Seconds (25.6-37.1) 04/11/17 16:35 Attending/Attestation - Attestation I have fully participated in the care of the patient.: Yes I have reviewed all pertinent clinical information, including history, physical exam and plan: Yes Notes (Text): F/u as out pt Reg diet Local wound care f.u with PMD and Dr. Rodriguez.
[2017-04-18 08:12] VITALS: BP 138/83; PULSE 83; TEMP 97.9; O2SAT 99
[2017-04-18] MEDS: Pantoprazole 40 mg EC Tab PO SCH (08:31)
[2017-04-18] MEDS ORDERED: Lactulose 10 gm/15 ml Syrup PO PRN (11:30)
--- NOTE | 2017-04-18 12:19 | CP.PCM.PCO ---
Assessment & Plan - Assessment and Plan (Free Text) Assessment: pt. doing well today, denies sob, fever , chills, n/v/d. Tolerating diet, + BM VSS, afebrile pt. cleared for discharge to home today by , and SHERRY drain to remain until f/u with surgeon ( RN to provide instructions0 s/p Lung Bx- results pending, pt. will f/u with and (pmd) next Saturday Rx for meds provided ( see reconciliation)
[2017-04-18] MEDS ORDERED: Amoxicillin-Clav 875-125 mg Tab PO SCH (12:30)
--- NOTE | 2017-04-18 13:16 | CP.PCM.DIS ---
Provider - Provider Date of Admission: 04/11/17 19:10 Attending physician: Fredy Perez MD Time Spent in preparation of Discharge (in minutes): 30 Diagnosis - Discharge Diagnosis (1) Appendicitis Status: Acute (2) Mass of upper lobe of right lung Status: Acute Priority: High Hospital Course - Lab Results Lab Results: Micro Results 04/11/17 19:00 Blood-Venous Blood Culture - Final NO GROWTH AFTER 5 DAYS 04/11/17 19:00 Blood-Venous Gram Stain - Final TEST NOT PERFORMED 04/11/17 19:00 Blood-Venous Blood Culture - Final NO GROWTH AFTER 5 DAYS 04/11/17 19:00 Blood-Venous Gram Stain - Final TEST NOT PERFORMED Most Recent Lab Values WBC 7.4 K/uL (4.8-10.8) 04/15/17 06:15 RBC 3.94 Mil/uL (3.80-5.20) 04/15/17 06:15 Hgb 11.0 g/dL (12.0-16.0) L 04/15/17 06:15 Hct 32.8 % (34.0-47.0) L 04/15/17 06:15 MCV 83.3 fl (81.0-99.0) 04/15/17 06:15 MCH 27.8 pg (27.0-31.0) 04/15/17 06:15 MCHC 33.4 g/dL (33.0-37.0) 04/15/17 06:15 RDW 13.2 % (11.5-14.5) 04/15/17 06:15 Plt Count 269 K/uL (130-400) 04/15/17 06:15 MPV 8.0 fl (7.2-11.7) 04/11/17 16:35 Neut % (Auto) 64.4 % (50.0-75.0) 04/11/17 16:35 Lymph % (Auto) 23.2 % (20.0-40.0) 04/11/17 16:35 Wheeler % (Auto) 9.1 % (0.0-10.0) 04/11/17 16:35 Eos % (Auto) 2.3 % (0.0-4.0) 04/11/17 16:35 Baso % (Auto) 1.0 % (0.0-2.0) 04/11/17 16:35 Neut # (Auto) 7.5 K/uL (1.8-7.0) H 04/11/17 16:35 Lymph # (Auto) 2.7 K/uL (1.0-4.3) 04/11/17 16:35 Wheeler # (Auto) 1.1 K/uL (0.0-0.8) H 04/11/17 16:35 Eos # (Auto) 0.3 K/uL (0.0-0.7) 04/11/17 16:35 Baso # (Auto) 0.1 K/uL (0.0-0.2) 04/11/17 16:35 PT 12.5 Seconds (9.8-13.1) 04/11/17 16:35 INR 1.1 (0.9-1.2) 04/11/17 16:35 APTT 32.6 Seconds (25.6-37.1) 04/11/17 16:35 pO2 28 mm/Hg (30-55) L 04/11/17 19:40 VBG pH 7.39 (7.32-7.43) 04/11/17 19:40 VBG pCO2 40 mmHg (40-60) 04/11/17 19:40 VBG HCO3 23.1 mmol/L 04/11/17 19:40 VBG Total CO2 25.4 mmol/L (22-28) 04/11/17 19:40 VBG O2 Sat (Calc) 59.3 % (40-65) 04/11/17 19:40 VBG Base Excess -0.7 mmol/L (0.0-2.0) L 04/11/17 19:40 VBG Potassium 3.8 mmol/L (3.6-5.2) 04/11/17 19:40 Sodium 139.0 mmol/L (132-148) 04/11/17 19:40 Chloride 107.0 mmol/L (98-107) 04/11/17 19:40 Glucose 100 mg/dL (65-105) 04/11/17 19:40 Lactate 1.0 mmol/L (0.7-2.1) 04/11/17 19:40 FiO2 21.0 % 04/11/17 19:40 Sodium 144 mmol/l (132-148) 04/15/17 06:15 Potassium 3.6 MMOL/L (3.6-5.0) 04/15/17 06:15 Chloride 107 mmol/L (98-107) 04/15/17 06:15 Carbon Dioxide 26 mmol/L (22-30) 04/15/17 06:15 Anion Gap 15 (10-20) 04/15/17 06:15 BUN 9 mg/dl (7-17) 04/15/17 06:15 Creatinine 0.6 mg/dl (0.7-1.2) L 04/15/17 06:15 Est GFR ( Amer) > 60 04/15/17 06:15 Est GFR (Non-Af Amer) > 60 04/15/17 06:15 Random Glucose 85 mg/dL (65-105) 04/15/17 06:15 Calcium 8.5 mg/dL (8.4-10.2) 04/15/17 06:15 Total Bilirubin 0.8 mg/dl (0.2-1.3) 04/15/17 06:15 AST 20 U/L (14-36) 04/15/17 06:15 ALT 23 U/L (9-52) 04/15/17 06:15 Alkaline Phosphatase 70 U/L (38-126) 04/15/17 06:15 Troponin I < 0.0120 ng/mL (0.00-0.120) 04/11/17 16:35 Total Protein 6.5 G/DL (6.3-8.2) 04/15/17 06:15 Albumin 3.2 g/dL (3.5-5.0) L 04/15/17 06:15 Globulin 3.3 gm/dL (2.2-3.9) 04/15/17 06:15 Albumin/Globulin Ratio 1.0 (1.0-2.1) 04/15/17 06:15 Lipase 50 U/L (23-300) 04/11/17 16:35 Thyroxine (T4) 9.89 ug/dl (5.5-11.0) 04/17/17 05:50 Total T3 0.826 nmol/L (1.49-2.60) L 04/17/17 05:50 TSH 3rd Generation < 0.02 mIU/ML (0.46-4.68) L 04/17/17 05:50 Venous Blood Potassium 3.8 mmol/L (3.6-5.2) 04/11/17 19:40 - Hospital Course Hospital Course: Patient doing well s.luigi lopez on POD 6. She was admitted for abdominal pain, found to have appendicitis and had aapendectomy. On CT scan it was noted that the patient has Right upper lobe masses. Masses were biopsied under CT guidance. pt. doing well today, denies sob, fever , chills, n/v/d. Tolerating diet, + BM VSS, afebrile pt. cleared for discharge to home today by , and SHERRY drain to remain until f/u with surgeon ( RN to provide instructions0 s/p Lung Bx- results pending, pt. will f/u with and (pmd) next Saturday Rx for meds provided ( see reconciliation) Discharge Exam - Head Exam Head Exam: NORMAL INSPECTION - Eye Exam Eye Exam: Normal appearance - ENT Exam ENT Exam: Mucous Membranes Moist - Respiratory Exam Respiratory Exam: Clear to PA & Lateral, NORMAL BREATHING PATTERN. absent: Rales, Rhonchi, Wheezes, Respiratory Distress - Cardiovascular Exam Cardiovascular Exam: REGULAR RHYTHM, +S1, +S2 - GI/Abdominal Exam GI & Abdominal Exam: Normal Bowel Sounds, Soft Additional comments: incision C/D/I . Drain w/ scant serous output - Neurological Exam Neurological exam: Alert, CN II-XII Intact, Oriented x3 - Skin Skin Exam: Normal Color, Warm Discharge Plan - Discharge Medications Prescriptions: ALPRAZolam [Xanax] 0.25 mg PO BID PRN #10 tab PRN Reason: Anxiety Amoxicillin/Clavulanate [Augmentin 875 MG-125 MG] 1 tab PO BID #14 tab Lactobacillus Acidophilus [Bacid Acidophilus] 1 cap PO BID #14 cap oxyCODONE/Acetaminophen [Percocet 5/325 mg Tab] 1 ea PO Q6 #20 tab Pantoprazole [Protonix EC Tab] 40 mg PO DAILY #14 ect - Follow Up Plan Condition: FAIR Disposition: HOME/ ROUTINE Instructions: Appendicitis (DC), Laparoscopic Appendectomy (DC) Additional Instructions: pt. doing well today, denies sob, fever , chills, n/v/d. Tolerating diet, + BM VSS, afebrile pt. cleared for discharge to home today by , and SHERRY drain to remain until f/u with surgeon ( RN to provide instructions) s/p Lung Bx- results pending, pt. will f/u with and (pmd) next Saturday Rx for meds provided ( see reconciliation) Referrals: Janene Lee MD [Family Provider] - Ga Rodriguez MD [Staff Provider] - Kenny Stacy MD [Staff Provider] -
== END 2017-04-18 15:30 | disposition home or self-care (01) | DRG 330 ==
LOC: H.ER 15:10 → H.ERHOLD 19:10 → H.MEDSURG1 23:02
PROVIDERS: ADMIT Internal Medicine; ATTEND Internal Medicine
PROC: 0DTJ4ZZ Resection of Appendix, Percutaneous Endoscopic Approach (ICD-10-PCS; 2017-04-12)
PROC: 0DNW4ZZ Release Peritoneum, Percutaneous Endoscopic Approach (ICD-10-PCS; 2017-04-12)
PROC: 0DBH4ZZ Excision of Cecum, Percutaneous Endoscopic Approach (ICD-10-PCS; principal; 2017-04-12 13:30)
PROC: 0BBC3ZX Excision of Right Upper Lung Lobe, Percutaneous Approach, Diagnostic (ICD-10-PCS; 2017-04-17)
DX: K35.3 Acute appendicitis with localized peritonitis (principal); C34.11 Malignant neoplasm of upper lobe, right bronchus or lung; E03.9 Hypothyroidism, unspecified; N73.8 Other specified female pelvic inflammatory diseases; E11.9 Type 2 diabetes mellitus without complications; E66.9 Obesity, unspecified; Z87.891 Personal history of nicotine dependence; Z98.84 Bariatric surgery status; Z98.1 Arthrodesis status